=== PATIENT | male | born 1955 | race Caucasian/White ===

== ENCOUNTER 2019-10-21 10:00 | Inpatient (IN) | payer BC, OTHER, MEDICAID ==
[~2019-10-21] VITALS: Ht 175.3 cm; Wt 67.7 kg
[~2019-10-21 10:00] MED LIST: CATAPRES-TTS 20.2 MG TRANSDERM; DOXYCYCLINE 10100 M2 PO; HYPERTENSION MED; TRAZODONE HCL100 MG PO; ZYPREXA 5 MG TAB5 M1 PO
[2019-10-21 10:27] VITALS: BP 123/60
--- NOTE | 2019-10-21 10:53 | NUR ---
ARRIVED TO FLOOR VIA CART ACCOMPNIED BY AMBULANCE MARJ FROM [facility] A 64 YEAR OLD MALE. ADMITTED TO [facility] WITH ETOH WITHDRAWL/DELIRIUM-HAD BEEN LIVING AT [facility] AND DRINKING HEAVILY PER H/P FROM HOSPITAL. UPON ARRIVAL TO UNIT IS PLEASANT AND SMILING,ORIENTED TO NAME ONLY. GAIT STEADY WITHOUT ASSISTIVE DEVICES. SPEECH CLEAR-CONVERSATION DISORGANIZED AND NON-GOAL DIRECTED. DOES REPORT LEFT SHOULDER PAIN- UNABLE TO RATE NUMERICALLY JUST STATES "REALLY BAD" DENIES SI/SH/HI. IS NOTED TO HAVE VISUAL HALLUCINATION DURING ADMITTED INTERVIEW SAW CAT UNDER ROOMMATES BED AND WAS MAKING COOING SOUNDS TO IT. SON GAVIN TONG CONACTED AND CONSENTS OBTAINED.
[2019-10-21 20:06] VITALS: BP 143/87
[2019-10-22 08:10] VITALS: BP 154/71
--- NOTE | 2019-10-22 08:53 | NUR ---
PT UP WANDERING AROUND THE UNIT. PT DOESN'T KNOW WHERE HE IS. PT ORIENTED TO SELF ONLY. PT LUNGS CLEAR. PT DENIES PAIN. PT TOOK MEDS WITHOUT ANY ISSUES. PT NEEDS ENCOURAGED TO SIT TO EAT. PT DOSN'T KNOW WHAT ROOM HE IS IN. PT NEEDS ASSISTANCE WHEN GOING TO BATHROOM.
[2019-10-22 09:05] VITALS: BP 154/71
--- NOTE | 2019-10-22 14:34 | NUR ---
SW contacted pt's son Abdi. No answer. vm is full. SW team will continue to follow pt during his stay on this unit.
--- NOTE | 2019-10-22 18:27 | NUR ---
PT AFTER DINNER WALKING AROUND AND TRYING TO GIVE OTHER RESIDENTS HIS CARROT. HE ALSO WAS GOING AROUND AND GETTING CLOSE TO OTHER RESIDENTS INVAIDING HIS SPACE. PT ALSO HELPING OTHER RESIDENTS TRYING TO GET UP OUT OF W/C. PT ASKED IF HE IS GOING TO LONGTERM. ENSURED PT HE IS NOT GOING TO LONGTERM.
[2019-10-22 19:56] VITALS: BP 177/88
[2019-10-22 21:55] VITALS: BP 177/88
--- NOTE | 2019-10-23 02:53 | NUR ---
Assumed care of patient this pm shift. Patient sitting in the mileu during assessment. Patient is confused but cooperative. Patient takes medications whole with thin fluids. Patient is medication adherent. Patient is alert and oriented to self only at this time. Patient wears a brief and needs assist x1 for bathroom use. Patients affect is blunted. Patients assessment shows no signs of acute distress. Lung sounds are clear, bowel sounds present. Patient is not considered a falls risk. Gait is steady and even. Patient did voice that he was having neck/shoulder pain. Tylenol was given. We will continue to monitor per hospital policy.
[2019-10-23 07:28] VITALS: BP 147/70
--- NOTE | 2019-10-23 08:51 | NUR ---
ASSUMED CARE AT 0700 THIS MORNING. PT. UP WANDERING AROUND, HE WAS TRYING TO GET INTO THE MEDICATION CART, TAKE PEERS FOOD OFF THEIR TRAYS. STAFF WATCHING PT. CAREFULLY AND STOPPED HIM FROM DOING SO. HE WAS GIVEN A CUP OF COFFEE AND ASKED TO SIT DOWN WITH IT. HE KEPT WANDERING AROUND WITH IT INSPITE OF STAFF REQUESTS. HE DID SIT DOWN AND EAT ABOUT 1/2 HIS BREAKFAST. HE TOOK HIS MEDICATIONS WITH MUCH ENCOURAGEMENT OF THIS RN. PT. CONTINUES TO WANDER THE HALLS. HE ASKED THIS DONOR RELATIONS MANAGER FOR A KISS AND ASKED IF I LOVED HIM MORE THAN THE OTHER PTS. HERE. THIS RN TOLD HIM HE WAS INAPPROPRIATE AND THIS IS NOT ACCEPTABLE BEHAVIORS. HE THEN GIGGLED AND WALKED AWAY.
[2019-10-23 12:29] VITALS: BP 147/70
[2019-10-23 12:31] VITALS: BP 147/70
--- NOTE | 2019-10-23 12:41 | NUR ---
BABITA contacted pt's 1st designated DPOA Jorge Shen at [phone]. No answer. BABITA left ms. BABITA also spoke to Abdi who said that Jorge works around heavy machinery so he cannot hear the phone, but he will call BABITA back. BABITA provided this update to Dr. Casiano. BABITA team will continue to follow pt during her stay on this unit.
[2019-10-23 21:34] VITALS: BP 147/70
--- NOTE | 2019-10-23 22:19 | H ---
[facility] [place] [address] HISTORY AND PHYSICAL Name: JORGE MATSON Room #: 526A-A ADM IN M.R.#: [id number] Admission: 10/21/19 Attend Phys: Lonnie Casiano DO Discharge: Date of : 57 Report #: [id number] THIS REPORT FOR: cc: LEAH - No family physician/PCP FAM - No family physician/PCP Lonnie Casiano DO ~ CC: Lonnie LYNN physician/PCP DATE OF SERVICE: 10/21/2019 INPATIENT PSYCHIATRIC EVALUATION ATTENDING PHYSICIAN: Lonnie Casiano DO. LENS EXAMINER: Jorge Hanson MD REASON FOR ADMISSION: Impulsivity, agitation in a setting of alcohol-induced dementia. SOURCES OF INFORMATION: Records from [facility], information from hospice, there Dr. Davidson, records in the computer. HISTORY OF PRESENT ILLNESS: This is a 64-year-old male admitted on 09/29/2019 to [facility]. He had delirium, encephalopathy, likely due to agitation. Apparently we were unable to get in touch with his son. The patient came in quite agitated and confused, requiring admission to the ICU. He had a white count of 19,000 on admission, with a single dose of Rocephin improved to 14,000. He also has a right axillary abscess which is small and did grew MRSA. Review of systems, unable to obtain. He is an every day smoker, apparently uses alcohol daily. He was admitted for acute metabolic encephalopathy, organ dysfunction, alcohol withdrawal at [facility]. Dr. Preston gave the patient Unasyn for his abscess. Also he was put on Precedex, alcohol withdrawal protocol. ADDITIONAL MEDICAL HISTORY AND DIAGNOSIS: Mild protein-calorie malnutrition, right axillary abscess, status post incision and drainage with MRSA, alcohol-induced dementia, left shoulder pain, progressive immobility. Apparently, the patient got significant amounts of Ativan. He was transferred then to the Telemetry Unit. Dr. Norman was consulted. The patient did receive an MRI on 10/16/2019, which found no evidence of acute infarction, mild periventricular white matter disease and chronic microangiopathy. There is cerebral atrophy. Head CT done on 09/27/2019 showed no evidence of acute intracranial hemorrhage or other abnormality. Cervical spine CT from 10/17/2019, apparently Dr. Norman ordered this. Extensive cervical spine degenerative changes, facet fusion was present on the right at C5-C6, C6-C7 [facility] [address] [place] [address] HISTORY AND PHYSICAL Name: JORGE MATSON Room #: 526A-A [facility] IN [facility]#: [id number] Admission: 10/21/19 Attend Phys: Lonnie Casiano, DO Discharge: Date of : 57 Report #: [id number] levels. No acute fracture. Shoulder x-ray as well from 10/09/2019 showed no acute osseous abnormalities, sequelae of remote trauma with manifestations of chronic calcific tendinitis, chronic rotator cuff tear. ALLERGIES: No known allergies. PAST MEDICAL HISTORY: Urinary tract obstruction, hypertension. REVIEW OF SYSTEMS: Not able to be obtained. On questioning this patient, he reported it is 2021. He said the date was . He did not know the day of the week. He is only oriented to self. He is grossly confused. ADDITIONAL INFORMATION: I am going to review the most recent laboratories. Hematology from 10/17/2019, white count 12.2, H and H 13.4 and 41.3, platelet count 416. Chemistries again from 10/17/2019, sodium 141, potassium 4.6, chloride 103, bicarbonate 31, anion gap 7, BUN 13, creatinine 0.7, estimated GFR 114, glucose 126. Lactic acid 0.9, calcium 9.0, that was on 10/17/2019. Total bilirubin 0.3, AST 26, ALT 17, alkaline phosphatase 13. C-reactive protein less than 2.0, total protein 6.6, albumin 3.3, prealbumin 21.0, vitamin B12 of 48. Vitamin D 35.1. TSH 1.164. Toxicology done at time of admission showed positive for marijuana. Salicylate is negative. Acetaminophen negative. Alcohol less than 10. COVID-19 PCR that was just done on 10/19/2019 was negative. PHYSICAL EXAMINATION: VITAL SIGNS: Today, temperature 37.2, pulse 82, respirations 17, BP 143/87. MUSCULOSKELETAL: Disheveled, needs to shave, wearing hospital gown, but ambulatory, so it was a relatively normal gait and station. MENTAL STATUS EXAMINATION: This is a well-developed, ill-appearing male, appearing much older than stated age. Attention limited. Concentration impaired. Speech is normal rate. Thought process nonlinear at times. Thought content disorganized, intermittently making nonsensical comments to this author. Denied SI or HI. Denied auditory, visual, or tactile hallucinations, shaking my hand at points. Mood and affect still okay, congruent and euthymic. Denied SI or HI. Memory not formally tested, but obviously impaired, insight impaired, judgment impaired. Fund of knowledge well below average. FORMULATION: A 64-year-old male admitted on 09/28/[address] Navarro. Apparently, there is some mystery as to how he arrived or who brought him to the hospital. Evidence of Alcohol withdrawl complicated and Dementia throughout medical stay. His PCP is Dr. Franks in [place]. 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 [facility] [address] [place] [address] HISTORY AND PHYSICAL Name: MARILYNERYNJORGE Dax Room #: 526A-A ADM IN ..#: [id number] Admission: 10/21/19 Attend Phys: Lonnie Casiano DO Discharge: Date of : 57 Report #: [id number] As his medical problems include hypertension, he was sent over just on Catapres 0.4 mg daily, trazodone I believe 100 mg at bedtime and famotidine. Current medications in the hospice, cyanocobalamin 500 mcg p.o. daily. MEDICATIONS: Olanzapine 2.5 mg p.o. b.i.d., Seroquel 50 mg q. 6 p.r.n., famotidine 20 mg daily, clonidine 0.2 mg patch, trazodone 100 as stated, house PRNs including ibuprofen. PLAN: Evaluate, stabilize, obtain collateral. ESTIMATED LENGTH OF STAY: 10-14 days. It is unclear if the patient has a surrogate decision maker, so if he does not improve, he will likely require guardianship. Time spent on interview, review of records, coordination of care is at least 45 minutes. STRENGTHS: Simply he is insured. WEAKNESSES: Numerous including early dementia, chronic alcoholism. Evidently, there was a telepsychiatry consultation, had some additional information. - collateral from [facility] staff. Apparently he was living at [facility], called 911 due to exhibiting disorientation. I believe he was in the ED due to falling. Affidavits were done. He denied that he had made suicidal threats but that was allegated. The telepsychiatry spoke to Nusrat Matson, at [phone]. She expressed significant concern for the patient's safety, verified statements and affidavit that was completed by her fiance. She stated she had removed the patient from her home due to his consistent alcohol intoxication as well as consistent suicidal threats. She stated that he has been residing at [facility] for the past 5-6 weeks. She stated that shortly after arriving at the hotel, patient threatened to kill himself with a knife in front of her children. He does have possession of a knife. She stated that the patient does not shower regularly or take care of himself in regard to physical health issues. She stated that she called 911 on Monday after stopping by the hotel to find patient intoxicated and stated to her to let him . The patient does not have any outpatient behavioral health providers and stated that she believes the patient has been diagnosed with bipolar disorder previously. She also stated that he has been previously prescribed Seroquel, but I also spoke to Kary Kurtz at [phone] with [facility]. She stated she became involved with the patient after receiving a hotline call that the patient has essentially been abandoned at the [address] [address] HISTORY AND PHYSICAL Name: JORGE MATSON Room #: 526A-A ADM IN M.R.#: [id number] Admission: 10/21/19 Attend Phys: Lonnie Casiano, DO Discharge: Date of : 57 Report #: [id number] rebecael. She stated that after talking to Nusrat, she clearly said that this was not the case, discussed clinical with ED provider, Dr. Navarro, recommended inpatient psychiatric admission. Dr. Navarro in agreement, admission is involuntary. It sounds like this was done actually on 09/27/2019 and then encephalopathy ensued and he got admitted medically, but I will follow the chain of events. Sounds like the alcohol binging also been 5-6 months from reading through the notes. So I ____ that for the admission H and P and will do a cognitive screen at least ____ and should be able to get some impulse control going. <ELECTRONICALLY SIGNED> By: Lonnie Casiano DO 10/23/19 2219 Lonnie Casiano DO /nt
--- NOTE | 2019-10-24 01:28 | NUR ---
Assumed care of patient this pm shift. Patients mood is variable between irritable and calm. Patient is alert to self only. Patient denies pain. Patient denies hi/si. Patient is very forgetful and wanders the halls going into other patients rooms. Patient needs much redirection. Patient is medication adherent and takes medications whole with thin fluids. Patient is ambulatory and not a falls risk. Patients assessment shows no signs of acute distress. Patients affect is blunted. Patient did not voice any new concerns this evening. Patient is continent of bowel and bladder but does get confused when using the restroom. Patient is able to follow simple directions. We will continue to monitor per hospital protocol.
[2019-10-24 09:17] VITALS: BP 136/66
--- NOTE | 2019-10-24 09:35 | NUR ---
BABITA and Dr. Casiano contacted pt's DPOA Jorge to discuss placement and options for pt's discharge. No answer. Dr. Casiano left a msg. SW team will continue to follow pt during his stay on this unit.
--- NOTE | 2019-10-24 10:07 | NUR ---
ASSUMED CARE AT 0700 THIS MORNING. PT. IS LESS ANXIOUS THIS MORNING. HE IS SOMEWHAT REDIRECTABLE. HE IS A BIT RESISTIVE BUT WILL DIRECT. HE SAT DOWN TO EAT HIS BREAKFAST AND WAS COOPERATIVE WITH TAKING HIS MORNING MEDICATIONS. HE IS COMMUNICATING WITH STAFF IN SHORT SENTENCES, HE CONTINUES TO NOT MAKE SENSE THOUGH.
--- NOTE | 2019-10-24 15:23 | NUR ---
1230 ASSUMED CARE OF PATIENT. PATIENT NOTED WANDERING IN CHAVEZ BEING INTRUSIVE AND WANDERING INTO OTHERS ROOM. PATIENT DID NOT ATTEND GROUP. PATIENT TO DAYROOM SITTING ON COUCH SITTING QUIETLY. WILL CONTINUE TO OBSERVE
--- NOTE | 2019-10-24 18:23 | NUR ---
PATIENT WAS HOLDING HANDS WITH ANOTHER MAN PATIENT AND THEY WERE PRAYING AND CRYING. SYSTEMS INTEGRATOR THEM AND RN WENT TO TALK TO PATIENT. HE WAS WEEPING EYED AND "SAID HE HAS A LOT TO FIGURE OUT AND TO GET HIS LIFE IN ORDER." HE DID NOT SAY ANYTHING ELSE. WAS SITTING ON COUCH LOOKING DOWN.
--- NOTE | 2019-10-25 02:33 | NUR ---
Pt oriented to self. Confused, forgetful. Pt was at the dayroom at time of assessment. Calm and cooperative. Makes lots of nonsensical sentences. Pt took meds as ordered. Pt currently on a recliner in the day room. Pt have not had much sleep so far. Will continue to monitor.
[2019-10-25 07:46] VITALS: BP 142/84
--- NOTE | 2019-10-25 11:26 | NUR ---
[facility] care 0700. 1126 given Quietiapine 50 mg. PO for agitation-getting too close to other patients, sometimes touching them, not responding to redirection or reminders not to get too close and not to touch others. Letting loose verballywith numerous explitives, cuss words for no apparent reason.
--- NOTE | 2019-10-25 13:20 | NUR ---
Caught kissing a male patient in the dayroom. Has briefly spoken to several peers. In and out of various other patients rooms. Not cooperating with numerous requests to stay out of others rooms, not to cuss or touch others. Was given Ziprasidone 15 mg IM for agitation.
--- NOTE | 2019-10-25 15:31 | NUR ---
Continued to need redirection-yelling, cussing for no apparent reason-sitting in the lara not making sense, very angry. At 1528 given Haldol 5 mg and Ativan 1.5 mg IM.
--- NOTE | 2019-10-25 15:56 | NUR ---
Jorge has been agitated, cursing, yelling, and attempting to strike at staff this afternoon. He was moved to a gerichair in the idanha hallway away from the milieu as his yelling was upsetting the milieu. Jorge continues to yell out obscenities, threaten staff, and has put his hands down his pants as female staff walk by, winking at them in the process. At one point he yelled, "I will kill you all. I will kill you good and then play with your bones!" A female patient was walking in the hallway when he shouted this and expressed fear for her safety. Patients in room 518, 520, 522, 523, and 524 have all come to this keno writer/runner in the last hour either tearful or expressing fear/anxiety d/t this patient's behaviors. He conts. to sit in the hallway yelling at this time and is presently undressing himself.
--- NOTE | 2019-10-25 17:00 | NUR ---
At 1635 continued loud, cussing, angry, agitated, not making any sense-was given Haldol 5 mg, Lorazepam 1 mg and benedryl 12.5 mg IM for continued agitation. Started slowing down around 1700.
--- NOTE | 2019-10-25 18:43 | NUR ---
At one point earlier he took off his pants and brief-nude from the waist down. He was toileted a couple of times after that. He went to sleep in the recliner with lap veronique on as he is quite impulsive when he gets up. No BM reported this shift. He did not et dinner as he was dozing during dinnertime.
[2019-10-25 20:00] VITALS: BP 146/75
--- NOTE | 2019-10-26 06:12 | NUR ---
Pt was on a fahad-chair, lap veronique in place at time of assessment. Pt barely responded to assessment questions. Words were more of mumblings. No clarity. Pt was agitated at time of assessment, but not towards nursing. Pt was hitting and punching the fahad-chair. There was some tactile and visual hallucinations noted. Pt was grabbing the air and putting it in his mouth, as if he was grabbing something edible. Tremors also noted this shift on pt. Meds was crushed and put in yoghurt. Pt took meds in yoghurt and had the whole cup of yoghurt. PRN trazodone was given this shift. Pt slept well. No yelling, shouting or screaming. Pt currently in the dayroom, sleeping. Will continue to monitor.
--- NOTE | 2019-10-26 09:13 | NUR ---
PT SITTING IN DINING ROOM IN FOREST CHAIR. PT ORIENTED TO SELF. PT TOOK MEDS WITHOUT ANY ISSUES. PT DRINING APPLE JUICE AND GRAHMN CRACKERS. PT HAS TREMORS TO ARMS AND LEGS. PT SEEMS WEAK BUT STRONG TO STENCIL MAKER. PT LUNGS CLEAR.
--- NOTE | 2019-10-26 10:20 | NUR ---
PT UP WALKING WITH ASSISTANCE WITH STAFF. PT SEEMS SHAKEY. PT TAKEN TO BATHROOM. PT STEADY WITH ASSIST.
--- NOTE | 2019-10-26 11:24 | NUR ---
PT PLACED BACK INTO FOREST CHAIR WITH LAP KD FOR SAFETY. PT RESTLESS AND TRYING TO GET UP AND CONFUSED ON WHAT OR WHERE HE IS DOING. PT SWATTING AT STAFF WHEN TRYING TO GET IN TO FOREST CHAIR.
--- NOTE | 2019-10-26 11:28 | NUR ---
ADM SEROQUEL 50MG PO CRUSHED IN PUDDING DUE TO AGGITATION. PT ATE PUDDING AND DRINKING WATER.
--- NOTE | 2019-10-26 12:58 | NUR ---
PT HAS BEEN WALKING AROUND WITH SHEET AROUND HIS SHOULDERS. HALLUCINATIONS OF NUTS AND BOLTS IN HAND WANTING THIS SHUTTLE OPERATOR TO HOLD THEM. PT GOING INTO ANOTHER ROOM, NEEDING ENCOURAGED TO EXIT ROOM. PT HARD TO REDIRECT.
--- NOTE | 2019-10-26 14:18 | NUR ---
PT DID SIT IN CHAIR FOR A LITTLE WHILE. PT BACK UP NOW PACING THE UNIT.
--- NOTE | 2019-10-26 14:56 | NUR ---
PT SITTING IN DINING ROOM CHAIR EATING CRACKERS AND DRINKING COFFEE.
--- NOTE | 2019-10-26 15:33 | NUR ---
PT GETTING MORE AGITATED, HITTING AT FURNITURE THINKING IT IS SOMETHING ELSE. ADM SEROQUEL 50MG PO.
--- NOTE | 2019-10-26 16:27 | NUR ---
PT WALKED BY NURSE AND SAID SHUT UP OR I WILL BOUND YOU ONE. PT TRYING TO MOVE FURNITURE IN DINING ROOM, PT MOVING CHAIRS AND TABLES.
--- NOTE | 2019-10-26 16:43 | NUR ---
THIS ADMINISTRATIVE MEDICAL DIRECTOR TALKING TO PT AND HE IS YELLING AT THIS ADMINISTRATIVE MEDICAL DIRECTOR. PT GOING INTO OTHER ROOMS AND NOT ABLE TO REDIRECT. GIVING GEODON 15MG IM AT THIS TIME.
--- NOTE | 2019-10-26 17:20 | NUR ---
PT FINISHED DINNER. PT PLACED IN FOREST CHAIR WITH ROSIO YI. PT CURSING AT STAFF AND WAS YELLING AT OTHER RESIDENTS.
--- NOTE | 2019-10-26 18:26 | NUR ---
PT TOOK OFF ARM BAND, STILL TRYING TO GET OUT OF CHAIR. PT SEEMS MORE TIRED.
[2019-10-26 20:34] VITALS: BP 159/88
--- NOTE | 2019-10-26 23:28 | NUR ---
Pt was on a fahad-chair, lap veronique in place in the hallway, at time of assessmement. Pt was cooperative with assessment. Alert and oriented to self only. Confused. Forgetful. Tremors noted. Meds given crushed, mixed with pudding. Pt currently in the dayroom, sleeping. Will continue to monitor.
[2019-10-27 07:37] VITALS: BP 95/51
--- NOTE | 2019-10-27 10:45 | NUR ---
Assumed care 0700. Up is recliner at meal table. Was incontinent taken to room for changing, became irritble, angry, slapping DIANA Del Rosario. Given Ziprasidone 15 mg IM PRN 0858. Initially held PO antipsychotic awaiting results of IM. Tried giving PO Antipsychotic and Acetaminophenlater around 1042--Did not get Acetaminophen, only got partial antipsychotic as he spit it out-it was chrushed and and spit out Multivitamin. Results from IM PRN-started slowing [id number] still confused, angry/irritable.
--- NOTE | 2019-10-27 16:15 | NUR ---
Patient agitated slowly working up for 30 minutes. Prior to that he had gotten to walk around in the dayroom with gait belt and walker with this RN. He talks about wanting to go out of the building to do things. When staff was helpuing him he started hitting them. IM Geodon 15 mg given.
--- NOTE | 2019-10-27 18:20 | NUR ---
Afternoon IM PRN took effect within about 30 minutes of injection. Pt. complained of sore shoulders. At 1840 he started hallucinating, yelling at unknown people stating get off the tractor then cursing flagrantly, taking shirt off.
[2019-10-27 20:00] VITALS: BP 120/82
--- NOTE | 2019-10-28 01:55 | NUR ---
Assumed care on 10/27/19 @ 19:15, Seated in a fahad chair in the day room, has shirt off, Denies needs, Cooperates with assessment, When responding in the negative uses cursing saying "No, Dammit." Denies SI/HI/AH/VH. Tylenol 650 prn provided for general pain of 5/10, upon follow up noted to be in bed with eyes closed, respirations even and unlabored, bed in low position with bed alarm set. Has a Denney score of 40, so is considered a low fall risk. Will continue to monitor as per protocol for patient safety and comfort.
[2019-10-28 02:00] VITALS: BP 120/82
[2019-10-28 09:00] VITALS: BP 98/62
--- NOTE | 2019-10-28 09:00 | NUR ---
PT SLEEPING AT THIS TIME.
--- NOTE | 2019-10-28 11:57 | NUR ---
BABITA contacted [employer] via phone to inquire if pt has a pending Medicaid sebastien. Staff said she will look into pt's acct and contact SW back. SW team will continue to follow pt during his stay on this unit.
--- NOTE | 2019-10-28 12:00 | NUR ---
PT SITTING IN DINING ROOM. PT NEEDED ENCOURAGED TO SIT TO EAT. PT VERY INTRUSIVE WITH OTHER PEOPLES TRAYS AND ITEMS. PT HAS KISSED THIS SYSTEMS ENGINEERING MANAGER HEAD X2. PT WANTING THIS SYSTEMS ENGINEERING MANAGER TO TAKE HIM SOMEWHERE. PT TOOK MEDS CRUSHED IN PUDDING. PT DOES HAVE A GOOD APPETITE.
--- NOTE | 2019-10-28 13:48 | NUR ---
Followup; pt remains on [facility]. Intake trends 70-100% of meals, no new wt since admit. Started on thiamin and vitamin as recommended. This RD mistakenly did not order Ensure as previously intended, so will add today. Otherwise remains low nutrition risk
[2019-10-28 14:11] VITALS: BP 103/59
--- NOTE | 2019-10-28 14:12 | NUR ---
TOOK PT BP WHILE PT WAS SITTING EATING ICE CREAM. PT BP 103/59, TOOK OFF CLONIDINE PATCH.
--- NOTE | 2019-10-28 15:34 | NUR ---
RT Progress Note- Jorge is present in the milieu daily but has not been able to participate in structured groups. Jorge wanders about the unit and is required redirection to respect other patients personal space and property. Jorge is not alert to his situation and displays extremely limited understanding when given a task to complete.
[2019-10-28 19:53] VITALS: BP 153/87
--- NOTE | 2019-10-29 04:04 | NUR ---
Assumed care on 10/28/19 @ 20:30, up in the mileu, Awake, anxious and Ox1. Ambulating throughout the halls and into peers bedrooms. Redirected multiple times. VSS, cooperated with Medication Administration, taking P.O. meds crushed in pudding with water. PRN Tylenol 650 provided for 5/10 General pain. Upon follow up assessment, reports pain only reduced to 4/10. Trazadone 100 provided with HS medication. Repeatedly gets out of bed, ambulating into peers rooms, becomming anxious and agitated. PRN Quetiapine 50 P.O given @ 0030 along with Ibuprophen 600. Seated in the fahad chair in the day room. Patient did not settle down, and instead escalated in psychological behaviors, agressive with staff, loud yelling at staff and peers. PRN Olanzapine IM provided @ 0200. Patient continues to escalate in behaviors, yelling at staff and getting out of fahad chair and ambulating. Transferred to a w/c and seated at a table with the staff. Patient unable to redirect, One time order of 15mg Geodon IM provided @ 0330. Patient allowed himself to be ambulated x2 assist to his bed and laid down in bed. At this writing, is in bed with eyes closed, respirations even and unlabored, bed in low position, bed alarm set.
[2019-10-29 09:09] VITALS: BP 141/74
--- NOTE | 2019-10-29 12:27 | NUR ---
PATIENT VERY CONFUSED - UP WANDERING AROUND WHEN PATIENT CARE ASSUMED AT 0700. PATIENT NEEDS ALOT OF REDIRECTION. INTRUSIVE WITHOUT REALIZING IT. PEERS EASILY AGITATED. RAMBLES ON - THOUGHT PROCESS JUMBLED AND COMPREHENSION NOT THERE. MEDICATIONS GIVEN IN PUDDING CRUSHED AND TOLERATED WELL. MAINTAINS CALM DEMEANOR FOR PATIENT. VERY RESTLESS - DOES NOT SIT STILL AT ALL. NO AGITATION NOTED AT THIS TIME.
--- NOTE | 2019-10-29 15:04 | NUR ---
BABITA contacted [employer] to get an update on Medicaid application. No answer. BABITA left ms. SW team will continue to follow pt during his stay on this unit.
[2019-10-29 19:30] VITALS: BP 164/79
--- NOTE | 2019-10-29 23:34 | NUR ---
Pt alert and walking around. He took his scheduled HS meds crushed in pudding with no issues.Pt looks tired but is restless. Observed walking into other peers rooms and agitating them. When redirected, pt also becoming increasingly anxious and agitated. I went ahead and gave him PRN PO seroquel. Also for sleep, gave him PRN trazodone. He is sitting by a table in the day area@this time,head bent over table.Will continue to monitor for safety.
[2019-10-30 09:13] VITALS: BP 119/59
--- NOTE | 2019-10-30 10:00 | NUR ---
Assumed care 0700. Found sitting in recliner sleeping, leaning forward after breakfast. Was awakened after breakfast and was compliant with meds crushed in pudding. Drank a milkshake which he liked very much. Conversation is not very distinct nor does it make sense. He wanders into other patients' rooms, removing patient gowns, stuffing them in his blue PJ pants. Takes towels and removed sheet protector pad to bring to the dayroom. Has no mentioned Goals or Concerns.
--- NOTE | 2019-10-30 10:55 | NUR ---
BABITA did not see pt on the log from [facility] for Medicaid application. BABITA emailed [facility] staff asking for an update. SW team will continue to follow pt during his stay on this unit.
--- NOTE | 2019-10-30 13:28 | NUR ---
Continues walking in the halls. Angry, lost, needs frequent redirection to get to his room. When redirected to his bathroom, he does not use it. He keeps on pacing the halls. He talked about punks being in the halls with guns. Patient was reassured he was safe in the hospital and there were no guns here. When redirected away from another patient's room became increasingly angry, though did not physically lash out.
--- NOTE | 2019-10-30 14:08 | NUR ---
Given Quetiapine 50 mg. PO at 1349 for increasing agitation-continued wandering into various rooms, getting into personal space of various peers, angry about unit door locked and he can't get out, exit seeking, bends over tries to loosen floor tile, overturned a chair forcefully as if to break it. Staff talking slow, in gentle low voice tone, offering pt. opportunity to take a nap-declined, starting to raise his voice, using several cuss words, thinks the staff-RN is someone whom he knows on the outside-which he does not know. ORder for Metronidazole Gel BID to face BID-obtained at 1355.
[2019-10-30 21:03] VITALS: BP 108/62
--- NOTE | 2019-10-31 00:51 | NUR ---
Pt was in the dayroom at time of assessment. Pt alert and oriented to self. Confused. Forgetful. Pt was cooperative with crushed med in pudding. pt was wandering into other peers' rooms. Unable to sit at a place. Pt became agitated on attempts to get him out of others' rooms. Pt was siited on fahad-chair, still agitated. Nursing attempted severally to redirect pt but did not seem to work. Pt received IM 7.5mg zyprexa. Meds did not do anything for pt as pt continued being agitated. Dr Casianoon the phone and informed of pt's behavior. Onetime IM doses of 5mg haldol and 1mg ativan ordered. Meds given as ordered. Pt currently on the fahad-chair sleeping. Will continue to monitor.
[2019-10-31 09:16] VITALS: BP 128/68
--- NOTE | 2019-10-31 11:51 | NUR ---
REMAINS RESTLESS WITH FREQUENT EPISODES OF INCREASED AGITATION,COMBATIVNESS,LOUD PROFANITY-AGITATION OCCURING PREDOMINATLY WITH CARES AND ANY ATTEMPTS AT REDIRECTING UNSAFE IMPULSIVE BEHAVIOR IE WAS ATTEMPTING TO GET OUT OF GERICHAIR BY SWINGING BOTH LEGS OVER THE SIDE OF CHAIR AND TRYING TO CRAWL OVER SIDE OF CHAIR. ORIENTED TO NAME ONLY-SPEECH GARBLED-CONVERSATION DISORGANIZED-FRAGMENTED INCOHERENT AT TIMES. DENIES C/O PAIN. FACE IS REDDENED AND IS UNSHAVEN-DID ATTEMPT TO SHAVE BUT PT BECOMES COBATIVE. MEDS CRUSHED THIS AM AND PLACED WITH ICE CREAM.
--- NOTE | 2019-10-31 14:36 | NUR ---
BABITA contacted [employer] and spoke to Kati who said Jacky was at lunch. She was unable to verify if Jacky spoke to Jorge Barrett and got the rest of info needed to complete pt's Medicaid sebastien. BABITA also did not see pt's name on the tracking list provided in email yesterday. She said she will ask Jacky to contact SW after she returns from lunch. SW team will continue to follow pt during his stay on this unit.
[2019-10-31 17:05] LABS: ALBUMIN 2.9 g/dL (3.4-5.0); CALCIUM 8.7 mg/dL (8.5-10.1); CREATININE 0.6 mg/dL (0.7-1.3); MAGNESIUM 2.1 mg/dL (1.8-2.4); POTASSIUM 3.9 mmol/L (3.5-5.1); TOTAL BILIRUBIN 0.3 mg/dL (0.2-1.0); TOTAL PROTEIN 6.3 g/dL (6.4-8.2)
[2019-10-31 20:10] VITALS: BP 165/75
--- NOTE | 2019-11-01 02:12 | NUR ---
Assumed pt's care this pm shift. Pt was in the dayroom at time of assessment. Pt was confused. Pt was on a fahad-chair with lap veronique in place. Pt was cooperative with assessment. No agitation or aggression noted. Pt was sleeping at that time, able to open eyes and talk, but falls back asleep with ease. Pt took meds crushed in pudding without hesitation. So far pt have been sleeping off and on. Occassion outburst of cursing and agitation that does not last up to 1 min. This have not warranted any PRN medication at this time. Pt currently on the fahad-chair sleeping. Will continue to monitor.
--- NOTE | 2019-11-01 11:45 | NUR ---
OBSERVED TO BECOME AGITATED,INCREASED RESTLESSNESS AT APPROX 1030-TRYING TO GET UP OUT OF GERICHAIR-PUTTING LEGS OVERSIDE OF CHAIR AND ARREMPTING TO CRAWL OVER SIDE-REMOVING HIS SHIRT AND OTHER CLOTHING. YELLING OUT FOR PIETRO AND GAVIN-THIS RN SPENT APPROX 45 MINUTES 1;1 ATTEMPTING TO REASSURE,REDIRECT-FLUIDS,TOILET AND REPOSITIONING OFFERED,COMPLETED WELL PRN TYLENOL 650MG FOR REPORTED BACK AND ELBOW PAIN AT 1045. TOOK AM MEDICATIONS CRUSHED IN ICE CREAM BUT REFUSES NEW OE=RDER FOR HALDOL PO TO BE STARTED AT 1100-SPIT OUT HALDOL IM GIVEN IN RIGHT DELTOID PER ORDER.
--- NOTE | 2019-11-01 14:30 | NUR ---
BABITA contacted [facility] and spoke with Jacky who said she has yet to hear from Jorge Barrett concerning pt's finances so she can finish his applicaton for Medicaid. BABITA contacted Abdi and explained that she and [facility] have yet to hear back from Jorge to finish pt's assessment. He said that Jorge told him he is calling and leaving BABITA or "whoever" msgs. BABITA explained that she has contacted Jorge several times, left several msgs, and so has [facility] and there arent any calls from Jorge returned regarding Medicaid
[2019-11-01 23:43] VITALS: BP 165/75
--- NOTE | 2019-11-02 01:47 | NUR ---
Assumed care on 11/01/19 @ 19:15, in bed eyes closed respirations even and unlabored. awakened to toilet, and was awake from then on, incease in agtiation note. Quetiapine 50 mg provided P.O. @ 2100. Haldol IM provided @ 2230 to calm severe agitation, the patient was picking up furniture and calling out. Calmed and seated in fahad chair post IM, calmed and closed eyes, with respiration even and unlabored.
--- NOTE | 2019-11-02 05:34 | NUR ---
Awakened @ 05:15, and experienced agitation and physical agression with staff. Provided Haldol 5mg IM. Seated in a fahad chair in the day room, observed by staff. Continues to want to get up and has trouble remaining seated.
[2019-11-02 07:48] VITALS: BP 110/63
[2019-11-02 09:11] VITALS: BP 110/63
--- NOTE | 2019-11-02 12:02 | NUR ---
PATIENT HAS BEEN UP IN RECLINER TODAY. HE HAS BEEN CALM AND COOPERATIVE. HE SITS AND FIDGETS WITH HIS CLOTHES AND HIS FEET. HE DENIES PAIN. FACE STILL WITH DERMATITIS RED SPOTS BUT DOES SEEM TO BE LESS RED. PATIENT IS INCONTINENT AND HAS BEEN TOILETED NEEDED. PATIENT TOOK HIS MORNING MEDS CRUSHED IN PUDDING. HE ATE 80% OF HIS FOOD AND DRANK 100% OF HIS STRAWBERRY ENSURE. I STARTED OUT HELPING HIM EAT AND THEN HE TOOK OVER AND WAS ABLE TO FEED HIMSELF WITH SOME DIRECTION. NO SIGNS OF PAIN. CONTINUING TO MONITOR.
--- NOTE | 2019-11-02 14:25 | NUR ---
PATIENT BECOMING MORE RESTLESS. HE REFUSED HIS HALDOL 5MG PO. HALDOL 5MG IM GIVEN TO PATIENT IN LEFT ARM. PATIENT A LITTLE IRRITABLE THIS AFTERNOON WHEN TRYING TO INSTRUCT HIM. PATIENT TOILETED AND SITTING IN RECLINER WITH LAP KD ON. HE IS QUIET JUST RESTLESS. CONTINUING TO MONITOR.
--- NOTE | 2019-11-02 15:37 | NUR ---
PATIENT REFUSED HALDOL 5MG PO AND WAS GIVEN IM INSTEAD. PT STILL RESTLESS AND TRYING TO GET OUT OF CHAIR. VENTED UP AGITATION SHOWING. GOT PATIENT UP AND WALKED HIM AROUND THE HALLS. HE TRIED TO OPEN [facility] UNIT ENTRY DOORS. HE WAS CURSING AND WASN'T ABLE TO BE REDIRECTED. WALKED AROUND AND FOLLOWED HIM. HE COMPLAINED OF BACK BEING SORE BUT WOULD NOT TAKE ANY MED PO. WARM MOIST TOWEL APPLIED TO BACK WITH SOME RELIEF. PATIENT HELPED BACK TO RECLINER. CHAIR ALARM ON AND LAPBUDDY ON. CHAIR IS LOCKED. PT SITTING AND FIDGETING IN CHAIR. WILL CONTINUE TO MONITOR.
--- NOTE | 2019-11-02 17:54 | NUR ---
PT ATE 50% OF HIS MEAL TONIGHT. HE IS WITH C/O BACK IS HURTING. PATIENT GIVEN TYLENOL 650MG CRUSHED IN ICECREAM. PATIENT HAD TO BE ENCOURAGED TO EAT AND HAD TO HAVE ASSISTANCE IN EATING. PATIENT DRANK HIS SUPPLEMENT 100%. PATIENT CALMED DOWN AND WAS LESS IRITABLE A COUPLE OF HOURS AFTER TAKING HIS HALDOL. HE IS STILL FIDGETING WITH THINGS HE SEE'S ON THE FLOOR. HE IS A/0X1. WILL CONTINUE TO MONITOR.
--- NOTE | 2019-11-03 00:30 | NUR ---
Assumed care on 11/02/19 2 19:15, in bed lying on side, eyes closed respirations even and unlabored. Awakened, toileted and ambulated to day room where he sat in the fahad chair watching basketball on Tv. Cooperated with assessment, vss, assessment WNL, compliant with medication, taking p.o. meds crushed in yogart. Dermatitis on face continues to be red and dry in appearance, topical medication applied. Provided PRN Tylenol 650 for back pain @ 2100. Continues to be awake and seated in fahad chair, will continue to monitor as per protocol for patient safety and comfort.
[2019-11-03 07:00] VITALS: BP 146/88
--- NOTE | 2019-11-03 14:16 | NUR ---
PHYSICALLY AGGRESSIVE AND COMBATIVE WHEN APPROACHED WITH AM MEDICATIONS AT 0900-REFUSED OFFERS OF PO MEDICATION AND BREAKFAST STATING "NO IM GOING HOME" GEODON 20MG IM GIVEN IM IN RIGHT FELTOID AND TOLERATED WITHOUT RESISTANCE. YELLING LOUDLY-ORIENTED TO NAME ONLY.
[2019-11-03 20:38] VITALS: BP 193/62
[2019-11-03 23:36] VITALS: BP 193/62
--- NOTE | 2019-11-04 01:56 | NUR ---
Assumed care on 11/03/19 @ 19:15, seated in a fahad chair in the dayroom. Restless and difficult to care for. Not able to even give name. Cooperated with assessment, no abnormal conditions auscultated. Took meds crushed in pudding, cooperated with medication administration. @ 2100 provided Haldol 5mg IM for violent behaviors after pt was hitting staff attempting to provide incontinent care. x2 staff and x2 security provided care.
--- NOTE | 2019-11-04 02:20 | NUR ---
Patient behavior escalates into severe agitation, getting out of bed after receiving a Haldol IM, kicking and hitting staff. Provided a Geodon 20mg IM x3 Security and x2 nursing staff. Patient monitored for safety, and he continued to try and get out of bed. Transferred to fahad chair and moved to the day room to monitor for patient safety. @ 0110 patient still awake and restless, requested Tylenol 650 for back and general pain. provided crushed in pudding along with Quetiapine 50 P.O. given for Psychiatric agitation and Zofran 4mg P.O. given for nausea. Patient took meds crushed in pudding, and Relaxed in the fahad chair.
[2019-11-04 08:51] VITALS: BP 152/60
--- NOTE | 2019-11-04 11:22 | NUR ---
Nutrition followup: Pt continues on H unit with major neurocognitive disorder with behaviorial disturbance. Noted required IM haldol last noc due to severe agitation, hitting/kicking staff. Unable to adequately interview pt. Intake records 50-100% meals, a couple recent refusals. Pt receiving ensure BID and is drinking 100% recently. On B12, thiamine supplementation. No longer on which is fine as pt drinking ensure BID. Sill no new weight since admit, alerted nsg. Keep as low nutrition risk with interventions in place.
--- NOTE | 2019-11-04 15:21 | NUR ---
RT Progress Note- Jorge's participation in recreation groups is very limited at this time d/t his cognitive deficits and his inability to focus on simple tasks. He is often present in morning exercise groups and is unable to follow along. He does attempt some socialization with peers though it is of disorganized content.
[2019-11-04 15:42] VITALS: BP 152/60
--- NOTE | 2019-11-04 15:55 | NUR ---
ASDSUMED CARE AT 0700 TODAY. PT. IN RECLINING CHAIR ON THE UNIT. HE REMAINS CONFUSED. HE WAS PLEASANT AND COOPERATIVE WITH THIS RN AND TOOK HIS MEDICATIONS WITHOUT PROBLEMS NOTED. HE IS NOT ABLE TO CARRY ON A CONVERSATION BUT DOES SAY A FEW WORDS WHEN ASKED A QUESTION. HE EATS WHEN HE IS PROMPTED OR ASSISTED BY STAFF. HIS SPEECH IS GARBLED MUCH OF THE TIME AND UNABLE TO BE UNDERSTOOD.
[2019-11-04 19:55] VITALS: BP 145/72
--- NOTE | 2019-11-05 03:21 | NUR ---
11-04-19 CARE TRANSFERRED 0 OBSERVED PT SITTING IN RECLINER IN DAY ROOM WITH EYES OPEN. PT AAOX1, VSS, RR EVEN AND NONLABORED ON RA. PT DENIES PAIN AND SI/HI. PT HAS BEEN CALM AND COOPERATIVE, PT IS WILLING TO ANSWERS QUESTIONS, BUT HAS DIFFICULTIES CARRYING ON A CONVERSATION. DURING MEDICATION ADMIN PT HAD NO DIFFICULTIES. LATER PT BECAME AGITATED THEN CALMED DOWN WHEN REPOSITION AND PT CONSUMED APPROXIMATE 120ML OF WATER, SEEMED TO QUITE DOWN, PT BECAME HIGHLY AGITATED AND IM 5M HALDOL ADMIN. WHILE GETTING PT A CHANGE OF CLOTHING NOTED PT WAS RESISTANCE AND COMBATIVE WITH STAFF. LATER NOTED PT HAD CALMED DOWN AND WAS SMILING. NO S/S OF ACUTE DISTRES, PT WILL CONTINUE TO BE MONITOR PER [facility] PROTOCOL.
[2019-11-05 07:35] VITALS: BP 140/68
--- NOTE | 2019-11-05 10:37 | NUR ---
BABITA sent the Medicaid screening tool to Abdi Shen at [email or web address]. BABITA also sent a Medicare.gov listing of nursing facilities. SW team will continue to follow pt during his stay on this unit.
--- NOTE | 2019-11-05 11:49 | NUR ---
ASSUMED CARE AT 0700 THIS MORNING. PT. UP IN RECLINING CHAIR. HE WAS COOPERATIVE WITH EATING SOME OF HIS BREAKFAST AND TAKING HIS MEDICATIONS. LATER IN THE MORNING HE WAS YELLING AND CURSING. HE WAS GIVEN OLANZAPINE 10 MG GIVEN. THIS SEEMED TO BE INEFFECTIVE FOR HIS AGITATION. HE CONTINUED TO YELL AN HOUR AFTER PRN'S WERE TAKEN.
[2019-11-05 13:30] VITALS: BP 140/68
--- NOTE | 2019-11-05 16:40 | EKG ---
[facility] [place] [address] ELECTROCARDIOGRAM REPORT Name: GAVIN MATSON Room #: [facility]- ADM IN M.R.#: [id number] Admission: 10/21/19 Attend Phys: Lonnie Casiano DO Discharge: Date of : 57 Report #: [id number] THIS REPORT FOR: cc: LEAH - No family physician/PCP LEAH - No family physician/PCP Jimmie Freitas MD [facility] ~ THIS REPORT FOR: //name// [facility] Test Date: 2019-11-05 Test Time: 13:33:23 Pat Name: GAVIN MATSON Department: Room: 52 A Gender: M [employer] Worker: Dru MAI : 1955 Requested By: Lonnie Casiano Order Number: [id number] MD: Jimmie Freitas Measurements Intervals [place] Rate: 63 P: -29 [place]: 167 QRS: -34 QRSD: 96 T: -11 QT: 477 QTc: 489 Interpretive Statements Sinus rhythm Atrial premature complex Left axis deviation Borderline T abnormalities Borderline prolonged QT interval No previous ECG available for comparison Electronically Signed On 11-05-2019 16:40:42 CDT by Jimmie Freitas [email or web address] <ELECTRONICALLY SIGNED> By: Jimmie Freitas MD, [facility] 11/05/19 1640 1333 1333 Jimmie Freitas MD, [facility] /EPI
[2019-11-05 19:25] VITALS: BP 128/71
--- NOTE | 2019-11-06 01:50 | NUR ---
11-05-19 CARE TRANSFERED AT 1900 OBSERVED PT SITTING IN RECLINER WITH EYES OPEN IN DAY ROOM. 1920 PT AAOX1, VSS, RR EVEN AND NONLABORED ON RA, PT DENIES ANY PAIN AND SI/HI. PT PRESENTS AGITATED AND COMBATIVE AND REFUSED ANY FURTHER NURSING ASSESSMENT. OBSERVED PT HITTING TABLE WITH HANDS IN DAY ROOM. DURING MEDICATION ADMIN PT HAD NO DIFFICULTIES TAKING PILLS CRUSHED IN PUDDING, BUT WHEN APPLYING TOPICAL MEDICATION TO DERMITIES PT STARTED SLAPPING MOTION. WHEN ASKED WHY, PT REPORTED I DON'T WANT, PT WILL ANSWER QUESTION BUT DOES NOT CONTINUES A CONVERSATION, OFTEN TIMES RAMBLING ON WITH FLIGHT OF IDEAS. LATER NOTED PT HAD CALMED DOWN AND NOTED HE WAS RESTING WITH EYES CLOSED IN GERICHAIR. ZERO S/S OF ACUTE DISTRESS NOTED, PT WILL CONTINUE TO BE MONITOR PER [facility] PROTOCOL.
[2019-11-06 07:27] VITALS: BP 120/71
[2019-11-06 09:42] VITALS: BP 120/71
--- NOTE | 2019-11-06 09:47 | NUR ---
Assumed care 0700. Redness spots clearing on face. No complaints of pain or distress. He continues to take off his ID and fall risk bands daily and sometimes more frequently. He tried to grab this nurse's wrist when offered AM medication. He was in group but not participating. Alert and oriented to name only. Confused.
[2019-11-06 19:40] VITALS: BP 122/62
--- NOTE | 2019-11-06 20:14 | NUR ---
Behavior most of shift was O.K. except for after dinner when he started taking his clothes off, then he became a little aggressive. It was clear he did not want his shirt on. He self-feeds.
--- NOTE | 2019-11-07 02:02 | NUR ---
11-06-19 CARE TRANSFERED 1899 OBSERVED PT SITTING IN GERICHAIR IN DAY ROOM WITH EYES OPEN. 1939 PT AAOX1, VSS, RR EVEN AND NONLABORED ON RA. PT PRESENTS CALM AND COOPERATIVE, ANSWERS QUESTIONS, DOES NOT CONVERSATION AND WHEN TRYING TO PT BECOMES FRUSTRATED. PT DENIES ANY PAIN AND SI/HI. DURING MEDICATION ADMIN PT HAD NO DIFFICULTIES. LATER PT REPORTED HE KNEES HURT AND SCORED AT A 6 ON 0-10 SCALE AND FEELING A LITTLE NAUSATED. OBSERVED PT HITTING TABLE AND NOTED AGITATION. PRN MEDICATION WAS ADMIN AND LATER NOTED PT WAS RESTING COMFORTABLE WITH EYES CLOSED. ZERO S/S OF ACUTE DISTRESS NOTED, PT WILL CONTINUE TO BE MONITOR PER [facility] PROTOCOL.
[2019-11-07 07:12] VITALS: BP 131/68
[2019-11-07 09:24] VITALS: BP 131/68
--- NOTE | 2019-11-07 09:32 | NUR ---
ASSUMED CARE AT 0700 TODAY. PT. UP, DRESSED AND IN RECLINING CHAIR. HE REMAINS VERY CONFUSED. ORIENTED TO HIS NAME ONLY. HE TOOK HIS MORNING MEDICATIONS WITHOUT PROBLEMS NOTED. HE FED HIMSELF BREAKFAST. HE WAS RESTLESS AFTER BREAKFAST AND WAS GIVEN TYLENOL FOR C/O PAIN IN HIS KNEES, BILATERALLY.
--- NOTE | 2019-11-07 14:26 | NUR ---
BABITA reviewed pt's chart and saw his last IM was on 11/05/2019. SW will wait until pt has at least 3 days without an IM injection before sending referrals for placement. SW team will continue to follow pt during his stay on this unit.
--- NOTE | 2019-11-08 02:33 | NUR ---
ASSUMED CARE FROM DAY SHIFT PT UP IN CHAIR AGITATED , MUMBLING , UNABLE TO GIVEN EYE CONTACT OR ANSWER SIMPLE QUESTION. PO MEDICATION TAKEN AFTER MUCH COACHING. PT REMAIN UP IN CHAIR MOST OF NIGHT.
--- NOTE | 2019-11-08 11:00 | NUR ---
Assumed care 0700. Face was scrubbed with soap and water with washcloth to remove scaling facial skin. Face remains with reddened spots. At times he pounds the table and the recliner. He does not answer assessment questions.
--- NOTE | 2019-11-08 11:05 | NUR ---
BABITA faxed updates from 23-11-03 to Kezia with [employer]. BABITA provided her an update on pts care verbally via phone also. BABITA team will continue to follow pt during his stay on this unit.
--- NOTE | 2019-11-08 14:28 | NUR ---
BABITA provided Abdi Shen a verbal update on pt's behaviors and happenings. Abdi asked that Dr. Casiano call he and his tomorrow to talk about the medication changes and prognosis. BABITA provied Dr. Casiano an update. SW team will continue to follow pt during his stay on this unit.
--- NOTE | 2019-11-08 17:30 | NUR ---
Pt. was given MOM prn and Senna/Docusate for bowels. No bowel movement yet. Incontinent of urine. Was asked several times if he needed toilet and would say he didn't or not give an answer. At one time he was pounding table and recliner, delusional/hallucinating responding to internal stimuli about cars, trucks, wanting to go somewhere unknown. Given PRN for agitation with god success in about 20 minutes. Plays with his food at dinner. Does initiate conversation with peers.
[2019-11-08 19:51] VITALS: BP 133/77
--- NOTE | 2019-11-08 21:10 | NUR ---
Assumed care on 11/08/19 @ 19:15, agitated and speaking nonsense. Denies Anxiety and Depression. Not able to get an answer to SI/HI and hallucination inquiry. Took meds crushed in yogart and drank water after. Tylenol given for shoulder pain of 5/10. Seated in fahad chair. HRRR, Lungs CTA bilat, would not allow auscultation of ABD. Will continue to monitor for patient safety and comfort.
--- NOTE | 2019-11-09 00:21 | NUR ---
At 00:15, began pounding fist on furniture and calling out. Provided PRN chlorpromazine 25mg IM in Left Delt, tolerated well x2 staff provided care.
--- NOTE | 2019-11-09 05:47 | NUR ---
Continued to rest in the fahad chair and slept 6.2 hours throughout the night.
[2019-11-09 07:22] VITALS: BP 144/80
[2019-11-09 08:32] VITALS: BP 144/80
--- NOTE | 2019-11-09 08:40 | NUR ---
PT SITTING IN DINING ROOM. PT IS INTERACTIVE WITH STAFF. PT CURSES AT TIMES. PT TOOK MEDS CRUSHED IN PUDDING, PT COMPLIENT WITH MEDS. PT HAS REDDNESS TO FACE WHERE BOTELLO IS. PT SITTING IN MEGHNA CHAIR WITH ROSIO YI.
--- NOTE | 2019-11-09 10:00 | NUR ---
ASSISTED PT TO BEDROOM TO CHANGE PANTS. PT LOWER EXT SWELLING, ANKLE AND FEET. PT CURSING AT STAFF AND SAYING OUCH. PT WAS INCON OF URINE. PT HAS REDDNESS TO COCCYX. APPLIED BARRIER CREAM TO REDDNESS. PT CHANGED AND LAID DOWN TO REST.
--- NOTE | 2019-11-09 10:39 | NUR ---
PT STILL RESTING AT THIS TIME.
--- NOTE | 2019-11-09 14:09 | NUR ---
PT SITTING IN DINING ROOM. PT TRYING TO GET UP OUT OF CHAIR. PT WAS CHANGED BEFORE LUNCH. NO THREATENING BEHAVIOR.
--- NOTE | 2019-11-09 17:38 | NUR ---
PT ABLE TO FED SELF. PT HITTING ARM OF THE CHAIR TODAY. PT DID HAVE A NAP AFTER BREAKFAST. PT WAS IN A GOOD MOOD WHEN GETTING BACK UP.
[2019-11-09 19:54] VITALS: BP 144/80
--- NOTE | 2019-11-09 20:40 | NUR ---
Assumed care on 11/09/19 @ 19:15, took his penis out of his pants while I was giving him his meds and urinated in a shower. He did not verbally say that he needed to urinate. He was taking his hospital gown off, but no other indication of need to urinate. Toileted and cleaned up, redressed in clean clothes and returned to the day room. No BM, but noted to have gas. Watching the baseball game, but says it is a football game. HRRR, Lungs CTA, ABD N BS. Will continue to monitor for patient safety and comfort.
--- NOTE | 2019-11-09 22:47 | NUR ---
Undressing self, taking shirt off and verbally calling out, given Thorazine 25 IM in the left deltoid. Tolerated IM well [id number] to administer. Follow up Acetaminophen 650, noted to still be uncomfortable, 3/10 Partial relief noted. 20 minutes after taking the IM, became calm and closed eyes. Respirations even and unlabored. Will continue to monitor for patient safety and comfort.
--- NOTE | 2019-11-10 06:00 | NUR ---
SLEPT 7 HOURS OVERNIGHT
[2019-11-10 07:33] VITALS: BP 152/77
[2019-11-10 08:00] VITALS: BP 152/77
--- NOTE | 2019-11-10 08:30 | NUR ---
PT SITTING IN DINING IN MEGHNA CHAIR. PT ABLE TO FEED SELF BREAKFAST. PT TOOK MED CRUSHED IN YOGART. PT DRINKING THIN WATER. PT MADE FACE WITH MED ADM. PT LUNGS CLEAR. RASH ON FACE IS CLEARING UP.
--- NOTE | 2019-11-10 14:38 | NUR ---
PT WAS HOWLING LIKE A DIAZ TODAY AFTER LUNCH. PT WAS TAKEN TO ROOM VIA WALKER AND X2 ASSIST TO BATHROOM. PT TOLERATED ACTIVITY WELL. NO WEAKNESS OR SOB.
--- NOTE | 2019-11-10 14:39 | NUR ---
Per Dr. Casiano, BABITA arranged an onsite family meeting with pt's son, Abdi [phone]. Tx team and Cloud Engineer were notified. Abdi was informed he would be required to wear a mask while onsite and would be allowed a one-hour visit with his dad following the meeting. Abdi was also informed one visitor will be allowed. Abdi expressed an understanding. SW team will continue to follow.
--- NOTE | 2019-11-10 19:00 | NUR ---
PT SEEMS RESTLESS IN MEGHNA CHAIR. TOLD PT THAT HIS SON IS VISITING TOMMORROW, PT STATED GOOD.
[2019-11-10 19:31] VITALS: BP 147/80
--- NOTE | 2019-11-11 01:24 | NUR ---
11-10-19 CARE TRANSFRED 1899 OBSERVED PT SITTING IN FOREST CHAIR IN DAY ROOM WITH EYES OPEN. 1939 PT AAOX1, VSS, RR EVEN AND NONLABORED ON RA. PT DENIES ANY PAIN OR SI/HI. PT RESTLESS BUT CALM AND COOPERATIVE THROUGHOUT NURSING ASSESSMENT. DURING MEDICATION ADMIN PT HAD NO DIFFICULTIES. DURING ROUND NOTED PT SUPINE IN BED RESTING WITH EYES CLOSED. LATER RESPONDED TO BED ALARM AND PT WAS THRASHING IN BED WANTING TO GET UP. PT ASSISTED INTO FOREST CHAIR AND TAKEN TO DAY ROOM; A LITTLE WHILE LATER OBSERVED PT HOWLING. ZERO S/S ACUTE DISTRESS, PT WILL CONTINUE TO BE MONITOR PER [facility] PROTOCOL.
[2019-11-11 07:17] VITALS: BP 164/88
--- NOTE | 2019-11-11 09:29 | NUR ---
PATIENT CARE ASSUMED AT 0700 - IN FOREST CHAIR IN [facility]. QUIET NON AGITATED - AGREEABLE. ATE BREAKFAST - MEDICATIONS ADMINISTERED IN APPLESAUCE AND TOLERATED WELL. 0BSERVED RESPONDING TO INTERNAL STIMULI AT TIMES. RESTLESS IN CHAIR. ASSISTED WITH VOIDING AFTER BREAKFAST. NEEDS REDIRECTION - WAS NOT FOCUSED ON GROUP - MADE ODD GROWLING SOUND AND NEEDS REDIRECTION OFTEN. COMPLIANT FOR AWHILE AND THEN STARTS RESTLESSNESS ONCE AGAIN. SAT THROUGH ACTIVITY BUT NON ENGAGED - DISRUPTIVE AT TIMES.
--- NOTE | 2019-11-11 15:09 | NUR ---
BABITA participated in a family meeting with pt's son, Abdi (who is trying to have DPOA switched to him.) Abdi was provided an update on the course of treatment, plans for discharge, and recommendations for placement (memory care.) He was notified that patient has been placed on a DNR status. Abdi expressed an understanding. Abdi stated he has notified BABITA Ross of 5 options to request placement. Abdi requested a letter from Dr. Casiano stating pt is not able to make decisions for himself. He will provide the contact information for the trademark attorney he would like the letter faxed to. BABITA team will continue to follow during this inpatient stay.
[2019-11-11 20:02] VITALS: BP 115/76
--- NOTE | 2019-11-12 03:31 | NUR ---
11-11-19 CARE TRANSFERRED 1899 OBSERVED PT SITTING IN GERICHAIR IN DAY ROOM. 193 PT AAOX1, VSS, RR EVEN AND NONLABORED ON RA. PT DENIES ANY PAIN AND SI/HI/ PT IS CALM AND COOPERATIVE, NOTED WHEN PT IS SPEAKING HE OFTEN SWITCHING SUBJECT OR LOSES TRAIN OF THOUGHT. DURING MEDICATION ADMIN PT HAD NO DIFFICULTIES. LATER RESPONSED TO BED ALARM AND PT REPORTED HE WAS NOT SLEEPY. PT WAS BROUGHT OUT TO DAY ROOM. OBSERVED PT BEING RESTLESS AND WAS GETTING LOUDER AND FIGDETING. HCP WAS CONTACTED AND HALDOL 5MG PO AND 1 MG ATIVAN PO ORDER RECEIVED. PT HAD NO DIFFICULTIES TAKING MEDICATION. LATER PT WAS ASSISTED TO BATHROOM AND PT HAD LARGE BM. LATER NOTED PT RESTING IN GERICHAIR WITH EYES CLOSED. ZERO S/S OF ACUTE DISTRESS NOTED, PT WILL CONTINUE TO BE MONTIOR PER [facility] PROTOCOL.
[2019-11-12 07:28] VITALS: BP 135/76
--- NOTE | 2019-11-12 10:53 | NUR ---
RT Progress Note- Jorge continues to be present in the milieu though he is not a productive participant. He no longer spends the entirity of his free time/group time wandering about the unit and is rather present by sitting in a fahad recliner. This allows for his presence in group though he is unable to actively participate as he is not oriented to situation or able to follow tasks given to him. He does continue to yell out, particularly when the milieu is active.
--- NOTE | 2019-11-12 11:26 | NUR ---
BABITA and Dr. Casiano spoke with Abdi about the letter he needs from the doctor. He has a meeting with his environmental attorney on 11/17 and needs a letter stating pt is incapacitated. Dr. Casiano and BABITA reviewed pt's chart and saw he got an prn IM on 11/08. Dr. Casiano agreed to allow one more day before placement. SW team will continue to follow pt during her stay .
--- NOTE | 2019-11-12 11:31 | NUR ---
ASSUMED CARE OF PT AT 0700. PT ALERT TO SELF ONLY SOMEWHAT IMPULSIVE. PT UNABLE TO ANSWER ASSESSMENT QUESTIONS. PT TOLERATES MEDS AND MEALS. PT UP SITTING IN DINNING ROOM. LITTLE INTERACTION WITH STAFF AND PEERS. WILL CONTINUE TO MONITOR.
[2019-11-12 20:00] VITALS: BP 131/80
[2019-11-12 23:22] VITALS: BP 131/80
--- NOTE | 2019-11-13 02:03 | NUR ---
ASSUMED CARE ON 11/12/19 @ 19:15, SEATED IN A FOREST CHAIR IN THE DAY ROOM. SPEAKS WHEN ADDRESSED BY STAFF. ANSWERS QUESTIONS WITH WORD SALAD ANSWERS. ENDORSES SHOULDER PAIN, CANNOT RESPOND TO MENTAL HEALTH ASSESSMENT INTERVIEW, CONFUSED WORD SALAD RESPONSES. HRRR, LUNGS CTA BILAT, ABD BS PRESENT. BECOMES AGITATED AND UNDRESSES REPEATEDLY. SCHEDULED MEDS GIVEN CRUSHED IN YOGART WITH WATER. PRN TYLENOL 650 PROVIDED AND FOLLOW UP ASSESSMENT PARTIAL PAIN RELIEF NOTED. COMPLIANT WITH MEDICATION ADMINISTRATION. RETIRED TO BED @ ABOUT 2300, GIVEN INCONTINENT CARE AND HAS BEEN ASLEEP UNTIL THIS WRITING. BED IN LOW POSITION, BED ALARM SET. WILL CONTINUE TO MONITOR PER UNIT PROTOCOL.
[2019-11-13 07:29] VITALS: BP 140/80
--- NOTE | 2019-11-13 10:50 | NUR ---
Nutrition followup: pt continues on [facility] unit with major neurocognitive disorder with behavioral disturbance. End stage alcoholic dementia. Unable to interview. Noted most recent weight up 11# from admit. Pt has been eating well, 75-100% of meals and drinking 100% of ensure BID. CM working on placement. Continue present interventions and followup weekly.
--- NOTE | 2019-11-13 15:43 | NUR ---
BABITA sent referrals to the followin. [facility] - referral sent 11/12 2. [facility] - [facility]/12 3. [facility] - referral sent 11/12 4. [facility]. [facility] 5. [facility] - referral sent 11/12 6. [place] - referral sent 11/12 7. [facility] - referral sent 11/12 8. [place] - referral sent 11/12 SW team will continue to follow pt during his stay on this unit.
--- NOTE | 2019-11-13 16:01 | NUR ---
PT SITTING IN CHAIR IN THE DAY ROOM THROUGHOUT THE DAY. VISUAL HALLUCINATIONS NOTED AT TIMES. AGGRED TO TAKE MEDS CRUSHED WITH PUDDING THIS AM. PT HAS BEEN CALM THROUGHOUT THE DAY.
[2019-11-13 19:26] VITALS: BP 164/93
--- NOTE | 2019-11-14 04:53 | NUR ---
Assumed pt's care this pm shift. Pt alert and oriented to self. Very confused. Tangential. Flight of ideas. Unable to carry ou meaningful conversation. Pt was calm during assessment. No aggression or agitation noted. Pt took his meds whole without problems. Pt had ice cream for HS snacks. Pt slept very little this shift, off and on. Pt spent the night in the dayroom, on a fahad-chair, with lap veronique in place for safety. Pt was very talkative. Pt currently awake and just talking. Will continue to monitor.
[2019-11-14 06:23] LABS: HEMATOCRIT 39.1 % (42.0-52.0); HEMOGLOBIN 12.7 gm/dL (14.0-18.0); MCH 30.4 pg (26.0-34.0); MCHC 32.5 g/dL (28.0-37.0); MCV 93.4 fL (80.0-100.0); RBC 4.19 mil/uL (4.50-6.00); RDW 14.6 % (10.5-14.5); WBC 12.6 thou/uL (4.0-11.0)
[2019-11-14 06:55] LABS: ALBUMIN 2.8 g/dL (3.4-5.0); CALCIUM 8.6 mg/dL (8.5-10.1); CREATININE 0.6 mg/dL (0.7-1.3); TOTAL BILIRUBIN 0.2 mg/dL (0.2-1.0); TOTAL PROTEIN 6.6 g/dL (6.4-8.2)
[2019-11-14 07:38] VITALS: BP 130/69
--- NOTE | 2019-11-14 16:27 | NUR ---
BABITA received a call from Meeta with [facility] who said she is considering pt's referral; she just needs pt's DPOA to also have financial POA. She may need an onsite visit. She said she will contact pt's DPOA and talk to him about financial DPOA. SW team will continue to follow pt during his stay on this unit.
--- NOTE | 2019-11-14 17:42 | NUR ---
PT ORIENTED TO SELF ONLY. FORGETFUL AND CONFUSED. PT AGREEABLE TO MEDS. PT COOPERATIVE & APPROPRIATE THIS SHIFT. PT WAS BLADDER SCANNED PER ORDERS, <26ML PRESENT IN HIS BLADDER. PT INCONTINENT OF URINE IN BRIEF, CHANGED NEEDED. ATTEMPTED TO COLLECT URINE SAMPLE FROM PT, LIMITED ON OPTIONS FOR COLLECTION. PT DOES NOT VOID IN URINAL ON COMMAND, CONDOM CATH NOT AVAILABLE R/T SAFETY CONCERNS WITH TUBING, BLADDER DID NOT HAVE SUFFICIENT VOLUME PER SCAN FOR STRAIGHT CATH AND PT BECOMES AGITATED WHEN CLEANING OR CHANGING BRIEF. ATTEMPTED TO USE TEMP COLLECTION BAG, PT REMOVED AND THREW ON FLOOR. PT DID AMBULATE WITH STAFF BRIEFLY THIS AFTERNOON WITH STB ASSIST. WALKER PROVIDED FOR STABILITY, PT PUSHED WALKER TO SIDE FREQUENTLY AND RETURNED TO CHAIR. WAS NOT ABLE TO REDIRECT APPROPRIATELY DUE TO PT COGNITIVE CAPACITY. FALL PRECAUTIONS IN PLACE. PT RESTLESS THIS SHIFT, FREQUENT OBSERVATION PROVIDED FOR SAFETY.
[2019-11-14 20:22] VITALS: BP 154/50
--- NOTE | 2019-11-15 05:10 | NUR ---
Assumed care of pt @ 1900. Pt calm et cooperative at beginning of shift but became quite agitated just after med pass requiring Chlorpromazine IM PRN to be administered to right deltoid. Pt tolerated injection with no signs or symptoms of adverse reaction. Took medications whole without difficulty. Ambulates with assistance of w/c or fahad-chair. VSWNL. Health assessment with no abnormalities at present time. Unable to assess SI/HI due to cognitive deficit but does not demonstrate any signs or symptoms of emotional distress. Sits in dayroom with peers but does not socialize. Currently resting in dayrrom in fahad-chair with eyes closed. Will continue to monitor per protocol.
[2019-11-15 08:00] VITALS: BP 109/83
--- NOTE | 2019-11-15 08:12 | NUR ---
PT WAS ABLE TO FEED SELF. PT DID TAKE PILLS ORALY WITHOUT BEING CRUSHED. DID GIVE DEPAKOTE SPRINKLES IN YOGART. PT HAS DRY SKIN TO FACE. PT STATED HE HAS PAIN TO RT SIDE WHEN ASKED IF HE WAS HURTING. PT HAS ACTIVE BOWEL SOUNDS.
[2019-11-15 08:40] VITALS: BP 109/83
--- NOTE | 2019-11-15 11:30 | NUR ---
TOOK PT TO ROOM AND ASSISTED PT TO STAND AND PT WAS ABLE TO WALK AROUND THE ROOM. PT STATED HE NEEDED TO HAVE A BM. PT DID PASS GAS. PT ALLOWED THIS CROSSCUTTER TO PUT ON A URINE COLLECTION BAG ON HIS PENIS. PT DID HAVE SOME REDDNESS TO COCCYX AREA, APPLIED BARRIER CREAM. PT THEN SAT DOWN ON HIS NEIGHBOR BED. PT ENCOURAGED TO WALK WITH NURSE TO DINING ROOM. PT STATED HE DIDN'T WANT TO WALK. PT THEN ATTEMPTED TO BODY AND FENDER WORKER BEDSIDE TABLE AND HITTING IT WITH A CLEAN DIAPER. PT WAS DRY IN BRIEF.
--- NOTE | 2019-11-15 11:54 | NUR ---
PT SITTING IN DINING ROOM IN CHAIR. PT CURSING AT SELF NOT TO ANYONE ELSE.
--- NOTE | 2019-11-15 13:38 | NUR ---
CHECKED TO SEE IF PT HAD VOIDED VIA SPECIMEN BAG, PT TOOK BAG OFF.
--- NOTE | 2019-11-15 13:56 | EKG ---
[facility] Lauryn [place] [address] ELECTROCARDIOGRAM REPORT Name: GAVIN MATSON Room #: [facility]- ADM IN M.R.#: [id number] Admission: 10/21/19 Attend Phys: Lonnie Casiano DO Discharge: Date of : 57 Report #: [id number] THIS REPORT FOR: cc: LEAH - Nellie family physician/PCP LEAH - Nellie family physician/PCP Chau Shine MD [facility] ~ THIS REPORT FOR: //name// [facility] Test Date: 2019-11-15 Test Time: 13:22:00 Pat Name: GAVIN MATSON Department: Room: 52 A Gender: M Dental Hygienist: Dru MAI : 1955 Requested By: Lonnie Casiano Order Number: [id number] MD: Chau Shine Measurements Intervals Rolla Rate: 85 P: 35 MD: 161 QRS: -24 QRSD: 76 T: -60 QT: 456 QTc: 543 Interpretive Statements Sinus rhythm Atrial premature complex Probable left atrial enlargement Borderline left axis deviation Borderline T abnormalities, inferior leads Compared to ECG 11/05/2019 13:33:23 No significant changes Electronically Signed On 11-15-2019 13:56:19 CDT by Chau Shine [email or web address] <ELECTRONICALLY SIGNED> By: Chau Shine MD, FACC 11/15/19 1356 1322 1322 Chau Shine MD, FAC /EPI
--- NOTE | 2019-11-15 15:11 | NUR ---
ATTEMPTED TO GET PT TO USE URINAL. PT WAS INCON. OF URINE. PT SITTING IN HALLWAY. GETTING PT A CUP OF WATER TO DRINK. PT DRANK CUP OF WATER.
--- NOTE | 2019-11-15 16:30 | NUR ---
PT WAS INCON. OF URINE IN CHAIR. PT UNDID LAP KD AND WAS STANDING. PT ESCORTED TO ROOM. PT WANTING TO GO TO ANOTHER ROOM INSTEAD. PT HARD TO REDIRECT. PT PULLING ON NURSE AND PLACED HEAD ON DOOR OF A ROOM. NEEDED ASSISTANCE TO GET PT TO HIS ROOM. PT SAT DOWN AND VOIDED IN TOILET. ATTEMPTED TO GET URINE VIA URINAL. PT NOT WANTING THIS TAIL PULLER TO GET URINE VIA URINAL. PT THEN DIGGING INTO HIS RECTUM TO GET STOOL. PT SITTING ON STOOL AND DIDN'T HAVE A BM. PT NEEDED ASSISTED TO GET BACK TO THE DINING ROOM.
--- NOTE | 2019-11-15 18:30 | NUR ---
OBTAINED STRAIGHT CATH WITH ASSISTANCE. PT DIDN'T TOLERATE VERY WELL.
[2019-11-15 19:09] LABS: URINE BILIRUBIN NEGATIVE (Negative); URINE BLOOD NEGATIVE (Negative); URINE CLARITY CLEAR; URINE COLOR YELLOW; URINE GLUCOSE-RANDOM* NEGATIVE (Negative); URINE KETONES 1+ (Negative); URINE LEUKOCYTES-REFLEX NEGATIVE (Negative); URINE NITRITE-REFLEX NEGATIVE (Negative); URINE PROTEIN (DIPSTICK) NEGATIVE (Negative); URINE SPECIFIC GRAVITY 1.025 (1.005-1.035)
[2019-11-15 19:48] VITALS: BP 102/62
--- NOTE | 2019-11-16 05:22 | NUR ---
Assumed care of pt @ 1900. Pt calm et cooperative at beginning of shift. Became hyperverbal et loudly cursing at other pts just after the beginning of shift. Pt was attempting to grab et pinch this nurse when administering medications, but pt did succesfully take medications whole without difficulty swallowing. Ambulates the halls with assistance of fahad-chair. VSWNL. Health assessment with no abnormalities noted at present time. Unable to assess SI/HI due to cognitive deficit but pt does not demonstrate any signs or symptoms of emotional distress at present time. Currently resting in fahad-chair in dayroom with eyes closed. Pt had minimal amount of sleep this shift. Will continue to monitor per protocol.
[2019-11-16 07:55] VITALS: BP 114/58
--- NOTE | 2019-11-16 10:37 | NUR ---
Assumed care for patient at 0700. Up in gerichair with osvaldo piper. in good mood, laughing with staff. Ate breakfast in dayroom. Up to bathroom. Had a small amount of formed stool. Up in bathroom. Walked from bedroom to dayroom. gait steady. VSS. Remains on Fall Precautions. Monitored for safety q 12 minutes. Aloert and orieinted to person. Changes level of cooperation quickly. Taking medication whole without difficulty. At times yelling out. Soft toy has a calming effect on restlessness.
[2019-11-16 20:17] VITALS: BP 161/91
--- NOTE | 2019-11-17 05:23 | NUR ---
Assumed care of pt @ 1900. Pt calm et cooperative at beginning of shift. Took medications whole without difficulty. Ambulates with assistance of fahad-chair. VSWNL. Health assessment with no abnormalities noted at present time. Around mid-shift, pt started to become agitated, yelling out, banging hand on table et chair, et cursing loudly. Talked with pt et he settled down a bit. Gave Tylenol 650mg PO PRN for shoulder pain around 0400. Pt denies SI/HI at present time. Currently resting in fahad-chair in dayroom with eyes closed. Will continue to monitor per protocol.
[2019-11-17 09:01] VITALS: BP 121/59
[2019-11-17 10:53] VITALS: BP 121/59
[2019-11-17 19:19] VITALS: BP 116/87
[2019-11-17 23:01] VITALS: BP 116/87
--- NOTE | 2019-11-18 01:49 | NUR ---
Assumed care on 11/17/19 @ 19:15, Seated in a fahad chair speaks to staff and hollers out to random peers. Cooperative with assessment, HRRR, Lungs CTA bilat, ABD [id number]. Compliant with medication. Took meds crushed in pudding. Became loud and verbally agressive @ 21:00, yelling out and calling people obscenities. Became physically agressive with incontinent care. Order obtained for Chlorpromazine HCL 25mg IM @ 21:45. Patient continued to call out, to cuss and use obscenities to rant and yell out. He also undresses himself. Calmed down by 23:15 and has slept in the fahad chair up to this writing.
--- NOTE | 2019-11-18 06:36 | NUR ---
Slept 4.8 hours overnight.
[2019-11-18 07:41] VITALS: BP 110/87
[2019-11-18 10:33] VITALS: BP 110/67
--- NOTE | 2019-11-18 10:40 | NUR ---
ASSUMED CARE OF PT. AT 0700 THIS MORNING. PT. UP IN RECLINING CHAIR. HE CONTINUES TO YELL AT THE AIR, ASK PEOPLE TO QUIT TALKING TO HIM (NO ONE IS THERE). HE WAS PULLED INTO THE CHAVEZ AFTER BREAKFAST FOR CURSING AND YELLING LOUDLY AT PEOPLE (WHEN NO ONE IS THERE). HE STATES IT IS TOO LOUD FOR HIM. AFTER BEING IN THE CHAVEZ FOR A FEW MINUTES HE STARTED QUIETING DOWN. HE TOOK HIS MEDICATIONS WITHOUT PROBLEMS NOTED. HE ATE WELL WHEN ASSISTED BY STAFF.
--- NOTE | 2019-11-18 15:46 | NUR ---
RT Progress Note- Jorge continues to provide limited participation in structured recreation groups. This is d/t his impulsive behaviors of yelling out and disrupting group. When calm, Jorge is able to remain present in group though participation still remains limited d/t his cognitive deficit. He has been receptive to 1;1 interaction-- music, ball toss at times. RT staff will continue to encourage participation when appropriate and will provide 1;1 intervention as needed
[2019-11-18 18:57] VITALS: BP 128/83
[2019-11-19 02:56] VITALS: BP 128/83
--- NOTE | 2019-11-19 03:48 | NUR ---
Assumed care on 11/18/19 @ 19:15, seated in a fahad chair in the lara just outside the nurses desk. Somewhat agitated, speaking to persons that are not present, speaking to persons on the phone, when he has no phone in his hand. PRN Thorazine 75mg P.O. provided @ 22:45 for restlessness and agitation. Remains awake and agitated @ 23:40, obtained an order from Dr. Casiano for Trazadone 100 mg p.o. and provided crushed in ice cream. Somewhat restless, reports back pain 5/10, Tylenol 650 provided @ 01:30, Toileted x2 staff and transferred to bed, on follow up assessment for Tylenol, noted to be sleeping. Rested calmly in bed for the duration of the night with bed in low position, bed alarm set, eyes closed and respirations even and unlabored. Will continue to monitor as per unit protocol for safety and comfort.
--- NOTE | 2019-11-19 06:04 | NUR ---
slept 5.8 hours overnight
[2019-11-19 07:37] VITALS: BP 99/66
--- NOTE | 2019-11-19 10:46 | NUR ---
Yesterday Dr. Caisano and BABITA spoke about pt receiving an IM injection the night before. Dr. Casiano decided to titrate up pt's meds, and BABITA will resume locating placement given pt has not received another shot within 72 hours. BABITA followed up on the following referrals she sent: 1. [facility] - Denied. Not accepting admissions due to COVID. 2. [facility] - Denied. No beds available. 3. [facility] - Denied. Cannot meet needs. 4. [facility] - no mem. care 5. [facility] - Denied. Cannot meet needs. 6. [place] - Will accept if he has a guardian. 7. [facility] - Left a [facility] for admissions 11/18 8. - Denied. No male memory care beds. SW team will continue to follow pt during his stay on this unit.
--- NOTE | 2019-11-19 13:31 | NUR ---
Alert and orientated to person only. Attempts to converse and answer orientation questions but then states to give him more time. Denies SI/HI. Occassionally becomes frustrated and uses profanity but calms down with redirection. Breath sounds clear t/o. Reg HR auscultated. Color pink with brisk capillary refill and palpable peripheral pulses. +2 edema in lower extremities, elevated. Incontinent of large amt yellow urine per chair. Active bowel sounds over soft, rounded abdomen. States he had lg BM this AM. Coccyx area reddened, cleaned and protective barrier ointment applied. Stool cleaned from around anus. Able to stand and pivot with assistance but spends majority of time in fahad chair.
[2019-11-19 19:35] VITALS: BP 103/52
[2019-11-19 20:50] VITALS: BP 103/52
--- NOTE | 2019-11-20 03:02 | NUR ---
PATIENT HAS BEEN SITTING IN FOREST-RECLINER ON CHAIR ALARM AND LOCKED CHAIR THIS EVENING. EARLY IN EVENING HE WAS HAVING NONSENSICAL CONVERSATION WITH HIMSELF AND SOMETIMES WHOEVER WAS AROUND. AT ONE POINT HE GOT HIMSELF LAUGHING AND ALMOST CRIED HE WAS LAUGHING SO HARD. HE WAS CONVERSING WITH THE FILAMENT COIL WINDER, SONJA. PATIENT WAS ASSISTED TO THE TOILET WITH ASSIST X2. HE DID VOID ONCE HE SATON THE TOILET. HIS BOTTOM IS REDDENED FROM SITTING ALOT. HE WILL NOT STAY IN BED WHEN PLACED THERE. BARRIER CREAM USED DURING TOILETING/INCONTINENCE CARE. PATIENT TOOK HIS MEDS CRUSHED IN PUDDING. HE HAD HS SNACK OF ICECREAM ALSO. PATIENT HAS BEEN MORE CALM TONIGHT AND NOT YELLING OR CURSING. HE NAPS OFF AND ON IN THE FOREST CHAIR IN THE DINING ROOM AND QUIETLY SPEAKS TO HIMSELF WHILE PICKING AT HIS CLOTHES. PATIENT SEEMS CALM AND COMFORTABLE. NO SIGNS OF SI/HI/AVH. CONTINUING TO MONITOR.
--- NOTE | 2019-11-20 04:12 | NUR ---
PATIENT WAS AWAKENED WHEN TRYING TO REPOSITION PATIENT IN GERICHAIR. HE HAD BEEN SITTING BENT OVER FORWARD FOR A LONG TIME. PT FOUND TO BE INCONTINENT AND TAKEN TO ROOM FOR INCONTINENCE CARES. PATIENT REFUSED TO GO TO BED. PATIENT BROUGHT OUT TO DINING ROOM AGAIN. HE NOW IS YELLING AND CURSING. WILL WAIT TO SEE IF HE CALMS DOWN BEFORE REVIEWING HIS PRN MEDS FOR BEHAVIORS.
[2019-11-20 08:58] VITALS: BP 110/60
--- NOTE | 2019-11-20 10:41 | NUR ---
Assumed care of patient at 0700. Up in chair in dayroom. Pleasant when approached. Oriented to person. Cooperative [facility] assessment. Abdomen soft with active bowel sounds, breath sounds clear. No pedal edema noted. Taking medications with applesauce. Is not participating in group. Smiling at times. Sitting up. Is not agitated or aggressive. Fall precautions in place. Monitored q 12 minutes.
--- NOTE | 2019-11-20 11:22 | NUR ---
Nutrition followup: pt feeds self and continues to eat most of meals plus 100% ensure BID. No weight since 11/08 but prior weight showed an increase from last month. Unable to interview. Pt very confused, cussing in day room. BM 11/16. End stage alcoholic dementia. Keep at low nutrition risk.
--- NOTE | 2019-11-20 14:25 | NUR ---
BABITA received notification from Jacky with [employer] that she reached out to Abdi in regards to supportive documents she needs for pt's Medicaid application; such as i.d., certificate, etc. BABITA emailed Abdi and NGUYEN'xiomara Rico on it requesting that he reach out to her. SW team will continue to follow pt during his stay on this unit.
[2019-11-20 19:40] VITALS: BP 136/82
[2019-11-20 20:45] VITALS: BP 136/82
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
[2019-11-21 07:32] VITALS: BP 136/68
--- NOTE | 2019-11-21 10:51 | NUR ---
Assumed care of patieint at 0700. Up in fahad chair. Cooperative. Wears brief, pullups. Incontinent. Stands to go use the commode chair with a two person assist. Breath sounds clear, abdomen soft, bowel sounds present. Taking medications in applesauce. Became loud, disrupting morning group, agitated, taken to hallway and was pounding on the wall, yelling out. Thorazine 75 mg PO given at 0931 for agitation. Patient stated "I should just put a gun to my head." Stated this twice. Reassured, given emotional support. Has periods when he is smiling, talkative and playful.
--- NOTE | 2019-11-21 16:55 | NUR ---
BABITA and Dr. Casiano contacted Abdi to provide an update. Abdi also said he spoke to an assistant district attorney and his family is comprising a plan to come up with $4000 they need to file for guardianship of pt. BABITA told Abdi she will continue to attempt to locate placement for pt that will accept a healthcare DPOA; she will explain the family is working towards obtaining guardianship. BABITA asked if he received a msg from [employer] regarding documents needed. He said he did not. BABITA emailed [employer] with the correct number for Abdi. BABITA contacted [employer] and spoke with Sara who said before Jacky left she spoke with Abdi who said he will bring pt's certificate to the hospital tomorrow. BABITA followed up on and sent referrals as follows: 1. [facility] - Denied. Not accepting admissions due to COVID. 2. [facility] - Denied. No beds available. 3. [facility] - Denied. Cannot meet needs. 4. [facility] - no mem. care 5. [facility] - Denied. Cannot meet needs. 6. [place] - Will accept if he has a guardian. 7. [facility] - Left a msg for admissions 11/18 8. [place] - Denied. No male memory care beds. 9. [place] - Referral sent 11/20 10. [place] -Referral sent 11/20 11. [facility]-Referral sent 11/20 12. [facility] -Referral sent 11/20 13. [facility] -Referral sent 11/20 14. [facility] -Referral sent 11/20 15. [facility] -Referral sent 11/20 16. [facility] -Referral sent 11/20 17. [facility] -Referral sent 11/20 18. [facility] -Referral sent 11/20 SW team will continue to follow pt during his stay on this unit.
[2019-11-21 19:22] VITALS: BP 127/64
--- NOTE | 2019-11-22 05:10 | NUR ---
Assumed care of pt @ 1900. Pt calm et cooperative this shift with only a few episodes of cursing in a loud voice. Took medications whole without difficulty. Ambulates with assistance of fahad-chair. VSWNL. Health assessment with no abnormalities noted at present time. Unable to assess SI/HI/AH/VH due to cognitive deficit but pt does not demonstrate any signs or symptoms of acute emotional distress at present time. Currently resting in fahad-chair in dayroom with eyes open. Will continue to monitor per protocol.
[2019-11-22 07:51] VITALS: BP 145/76
--- NOTE | 2019-11-22 10:39 | NUR ---
Alert and orientated to person only. Tries to guess at other orientation questions. Becomes agitated at times but is redirectable. Sitting in chair with lap veronique in place. Denies SI/HI. Breath sounds clear. Reg HR auscultated. Color pink with brisk capillary refill and palpable peripheral pulses. +2 edema in lower extremities. Active bowel sounds over soft, flat abdomen. No stool documented since 11/18. Brief dry. Coccyx area slightly reddened, protective barrier ointment applied. Able to stand and transfer with assistance.
--- NOTE | 2019-11-22 11:48 | EKG ---
[facility] Lauryn Castro [place] [address] ELECTROCARDIOGRAM REPORT Name: GAVIN MATSON Dax Room #: [facility]- ADM IN M.R.#: [id number] Admission: 10/21/19 Attend Phys: Lonnie Casiano DO Discharge: Date of : 57 Report #: [id number] THIS REPORT FOR: cc: LEAH - Nellie family physician/PCP LEAH - Nellie family physician/PCP Chau Shine MD [facility] ~ THIS REPORT FOR: //name// [facility] Test Date: 2019-11-22 Test Time: 11:11:12 Pat Name: GAVIN MATSON Department: Room: 52 A Gender: M Chemical Pumper: DEIRDRE : 1955 Requested By: Lonnie Casiano Order Number: [id number] MD: Chau Shine Measurements Intervals Half Way Rate: 80 P: 20 NE: 171 QRS: -29 QRSD: 86 T: 31 QT: 373 QTc: 431 Interpretive Statements Sinus rhythm Probable left atrial enlargement Borderline left axis deviation Compared to ECG 11/15/2019 13:22:00 Atrial premature complex(es) no longer present T-wave abnormality no longer present Electronically Signed On 11-22-2019 11:48:24 CDT by Chau Shine [email or web address] <ELECTRONICALLY SIGNED> By: Chau Shine MD, FACC 11/22/19 1148 1111 1111 Chau Shine MD, FAC /EPI
[2019-11-22 12:57] LABS: CALCIUM 8.7 mg/dL (8.5-10.1); CREATININE 0.5 mg/dL (0.7-1.3); POTASSIUM 4.1 mmol/L (3.5-5.1)
--- NOTE | 2019-11-22 17:07 | NUR ---
Updates for placement are as follows: [facility]. [facility] - Denied. Not accepting admissions due to COVID. 2. [facility] - Denied. No beds available. 3. [facility] - Denied. Cannot meet needs. 4. [facility] - no mem. care 5. [facility] - Denied. Cannot meet needs. 6. [facility] - Will accept if he has a guardian. 7. [facility] - Left a ms for admissions 11/18 8. [facility] [place] - Denied. No male memory care beds. 9. [place] - Denied. No memory care beds. 10. [place] -Referral sent 11/20 11. [facility]-Referral sent 11/20 12. [facility] -Referral sent 11/20 13. [facility] -Referral sent 11/[address] [facility] -Referral sent 11/[address] [facility] -Referral sent 11/20 16. [facility] -Referral sent 11/20 17. [facility] -Referral sent 11/20 18. [facility] -? Admissions contacted BABITA. Awaiting a call back. BABITA received a call from Wade with [facility]. asking for a call back to [phone]. BABITA did so. No answer. SW left [facility]. BABITA team will continue to follow pt during his stay on this unit.
[2019-11-22 19:27] VITALS: BP 121/69
--- NOTE | 2019-11-23 04:35 | NUR ---
Assumed care of pt at 1900. Pt calm et cooperative this shift. Took medication whole without difficulty. Ambulates via fahad-chair. VSWNL. Health assessment with no abnormalities noted at present time. Unable to assess SI/HI/AH/VH due to cognitive deficit but pt does not demonstrate any signs or symptoms of acute emotional distress. Currently resting in fahad-chair in dayroom with eyes closed. Will continue to monitor per protocol.
[2019-11-23 08:00] VITALS: BP 158/80
--- NOTE | 2019-11-23 15:48 | NUR ---
COMPLIENT WITH TAKING MEDICATIONMS WITHOUT RESISTANCE-EATING WELL-NEEFDS ASSIST AT MEALS WILL PUT FOOD ON FLOOR OR UNDER TABLE AND NEEDS VERBAL QUEING/PROMPTING TO PUT IN MOUTH AND CHEW. HAS BEEN WALKING IN HALLWAYS MOST OF PM PACING,INTRUSIVE PICKING UP PEERS CUPS,PAPERWORK,BOOKS ETC. GAIT IS UNSTEADY AT TIMES BUT REFUSES TO SIT FOR MORE THAN 2-3 MINUTES PHIL TIMEINSISTING THAT HE HAS TO "GET GOING" OR "WALK UP THE STREET" OR "GO HAVE A CIGARETTE" REQUIRES SBA X 1 AT ALL TIMES WHEN AMBULATING SO HAS REQUIRED ALMOST CONSTANT SUPERVISION/1;1 WITH STAFF THIS PM. USING COMMODE TO VOID X1 AND DID HAVE 1 EPISODE OF URINARY INCONTINENCE. ORIENTED TO NAME ONLY-SOME MOOD LABILTIY-VERBAL AGITATION YELLING PROFANITY AT STAFF WHEN REDIRECTED AT TIMES -AT ONE POINT PUNCHED WALL WHEN TOLD HE WOULKD BE STAYING INHOSPITAL OVERNIGHT HE WAS STANDING AT EXIT DOORS
[2019-11-23 20:25] VITALS: BP 102/63
--- NOTE | 2019-11-24 04:02 | NUR ---
Assumed care of pt @ 1900. Pt calm et cooperative this shift. Took medication whole without difficulty. Ambulates via fahad-chair et ad jhon with unsteady gait. VSWNL. Health assessment with no abnormalities at present time. Unable to assess SI/HI due to cognitive deficit but pt does not demonstrate any signs or symptoms of acute emotional distress at present time. Currently resting in fahad-chair in dayroom with eyes open. Will continue to monitor per protocol.
[2019-11-24 07:30] VITALS: BP 133/73
--- NOTE | 2019-11-24 09:25 | NUR ---
Assumed patient care at 0715. Vital signs stable, LSCTA, ABD soft and non-tender, BS x's 4, no signs/symptoms of pain. Patient displays paranoia, states "be careful around him" as he points to his peer across the table. Patient made some comments to his peer, started to escalalte; this nurse re-directed him. He was compliant with his crushed medications in pudding.
[2019-11-24 19:37] VITALS: BP 124/75
[2019-11-25 03:41] VITALS: BP 124/75
--- NOTE | 2019-11-25 03:49 | NUR ---
Assumed care on -11/24/19 @ 19:30, seated in the fahad chair in front of the nurses desk. Occasionally talks on an imaginary phone, calls out obscenities to unseen persons and to peers. Took meds crushed in pudding without difficulty. PRN Thorazine 75mg P.O. provided for anxiety and agitation, PRN Trazadone 25mg provided for insomnia, @ 23:19. Became calmer, and drowsy after about an hour, toileted and transferred to bed. Has been asleep until this writing, bed in low position, bed alarm on. Will continue to monitor as per unit protocol for safety and comfort.
[2019-11-25 08:50] VITALS: BP 123/62
--- NOTE | 2019-11-25 12:22 | NUR ---
HAS BEEN VISIBLE IN [place]ROOM [place]FREQUENTLY YELLS OUT TO STAFF TO COME SIT BY HIM OR DRIVE HIM SOMEWHERE AT TIMES MISIDENTIFIES STAFF HIS FAMILY OR PREVIOUS ACQUINTANCE ETC. ORIENTED TO NAME ONLY-CONVERSATION [id number]-[id number] DIRECTED. AMBULATES IN HALLWAYS WITH SBA X 1 BUT GAIT IS UNSTEADY AND IS IMPULSIVE TRYING TO CRTAWL OVER SIDES OF CHAIR OR STEP UP ON BED. DENIES C/O PAIN. RESTLESS ATTEMPTING TO GET UP CONSTANTLY AND STATING HE NEEDS TO GO "GET THE TRUCK" OR "GO TO WORK" OR "MEET SOME PEOPLE" OR HAVE A CIGARETTE" DOES BECOME FRUSTRATED AND BEGIN TO YELL PROFANITY OR POUNDS FIST ON WALL OR TABLE.
--- NOTE | 2019-11-25 13:24 | NUR ---
BABITA received a folder with a copy of a certificate for pt in it; it is labeled for Jacky with [employer] [facility]. BABITA contacted Jacky who said she will be up to collect this from BABITA. BABITA team will continue to follow pt during her stay on this unit.
--- NOTE | 2019-11-25 15:20 | NUR ---
RT Progress Note- Jorge continues to be limited in participation in the milieu and structured recreation groups d/t cognition. He has however improved in that he has been able to remain present in groups and non disruptive when reminded to listen rather than yell out. He continues to participate in 1;1 leisure aprx 3x per week, listening to music or tossing the beach ball. Staff will continue this.
--- NOTE | 2019-11-25 16:36 | NUR ---
updates for [facility] as follows: [facility] Not [facility] due to [facility]. 2. [facility] - Denied. No beds available. 3. [facility] - Denied. Cannot meet needs. 4. [facility] [place] - no mem. care 5. [facility] - Denied. Cannot meet needs. 6. [place] - Will accept if he has a guardian. 7. [facility] - Left a msg for admissions 11/18 8. [place] - Denied. No male memory care beds. 9. [place] - Denied. No memory care beds. 10. [place] -No answer from facility 11/24 11. [facility]- Denied. Not accepting admissions at this time. 12. [facility] referral 11/24 13. [facility] - Denied. Cannot meet needs. 14. [facility] - Left msg with admissions 11/24 15. [facility] - Left msg with admissions 11/24 16. [facility] - Denied. Not accepting admissions. 17. [facility] -Left msg with admissions 11/24 18. [facility] -?Admissions contacted BABITA. Awaiting a call back. SW team will continue to follow pt during his stay on this unit.
[2019-11-25 19:31] VITALS: BP 162/87
[2019-11-25 23:21] VITALS: BP 162/87
--- NOTE | 2019-11-25 23:33 | NUR ---
Assumed care on 11/25/19, seated in a fahad chair in the lara near the nurses desk. Yelling out occasionally, talking on an imaginary phone occcasionally. Coooperated with assessment and compliant with medication administration, taking meds crushed in pudding/ice cream. Would not cooperate with staff trying to provide toileting. Is able to stand and ambulate, but refused to stand and walk to the toilet. PRN Thorizine 75mg po and Tylenol 650 provided for shoulder/head pain of 5/10 @ 2200. Is seated in the fahad chair at this writing, calm and has eyes closed, respiration even and unlabored.
[2019-11-26 07:41] VITALS: BP 125/71
--- NOTE | 2019-11-26 10:37 | NUR ---
Alert to name only but does not state name. Confused speech. When given water to drink with meds he asked if it was vodka. Some coherent speech at times. Denies SI/HI. When asked orientation questions he stated he couldn't remember d/t not being that smart. Compliant with meds. Able to stand with assistance but mostly sits in fahad chair with lap veronique fastened in front. Breath sounds clear. Reg HR auscultated. Color pink with brisk capillary refill and palpable peripheral pulses. +2 edema in feet. Active bowel sounds over soft, flat abdomen. Incontinent of urine this AM.
--- NOTE | 2019-11-26 11:08 | NUR ---
Nutrition followup: Pt feeding self meals eating 75-100%, 100% most ensure enlive BID. No recent BM documented. Last weight up 6# from admit. On B12 supplementation. Very confused. Continue as low nutrition risk with interventions in place.
--- NOTE | 2019-11-26 14:10 | NUR ---
BABITA followed up and and sent referrals to the followin. [facility] - Denied. Not accepting admissions due to COVID. 2. [facility] - Denied. No beds available. 3. [facility] - Denied. Cannot meet needs. 4. [place] - no mem. care 5. [facility] - Denied. Cannot meet needs. 6. [place] - Will accept if he has a guardian. 7. [facility] - Left a msg for admissions 11/18 8. [place] - Denied. No male memory care beds. 9. [place] - Denied. No memory care beds. 10. [place] -No answer from facility 11/24 11. [facility]- Denied. Not accepting admissions at this time. 12. [facility] - Denied. Not accepting Admissions at this time. 13. [facility] - Denied. Cannot meet needs. 14. [facility] - Left msg with admissions 11/24 15. [facility] msg with admissions 11/24 16. [facility] - Denied. Not accepting admissions. 17. [facility] -Left msg with admissions 11/24 18. [facility] -?Admissions contacted BABITA. Awaiting a call back. 11/24 19. [facility] - Denied. No Medicaid beds. 20. [facility] - No mem. care. 21. [facility] referral sent 11/25 22. [facility] - referral sent 11/25 23. [place] - referral sent 11/25 24. [facility] - referral sent 11/25 25. [place] - referral sent 11/25 26. [facility] - referral sent 11/25 27. [facility] - referral sent 11/25 28. [place] - referral sent 11/25 29. [place] - referral sent 11/25 30. [place] - referral sent 11/25 31. [facility] - referral sent 11/25 BABITA sent an email to Abdi and provided an update SW team will continue to follow pt during his stay on this unit.
[2019-11-26 19:30] VITALS: BP 125/74
--- NOTE | 2019-11-26 22:08 | NUR ---
PATIENT ASSESSED. AND IS ALERT X 1. VERY AGITATED AT TIMES. TAKEN HIS HS MEDS BUT REFUSED HIS SENNA. SITS IN FOREST CHAIR. IN CONT OF B&B. SI/HI NOTED. ATE APPLESAUSE WITH HIS MEDS. REMAINS A FALL RISK. LAP KD IN FOREST CHAIR FOR SAFETY. PLACED TO BED WITH OUT PROBLEMS.CONT PLAN OF CARE.
--- NOTE | 2019-11-26 23:46 | NUR ---
11-26-19 CARE TRANSFERRED AT 2300 OBSERVED PT SUPINE IN BED RESTING WITH EYES CLOSED, 16 RR EVEN AND NONLABORED ON RA. ZERO S/S OF ACUTE DISTRESS NOTED, PT WILL CONTINUE TO BE MONITOR PER [facility] PROTOCOL.
[2019-11-27 08:55] VITALS: BP 117/62
--- NOTE | 2019-11-27 11:38 | NUR ---
ORIENTED TO NAME ONLY THIS AM-SOME EPISODES OF RESTLESSNESS INCREASED ANXIETY/AGITATION EVIDENCED BY YELLING OUT,SWEARING WHICH IS USUALLY SHORT LIVES-RESPONDS TO SUPPORT,REASSURANCE REDIRECTROM NURSING STAFF-DOES APPEAR MORE REDIRECTABLE COMPARED TO PREVIOUS SHIFT AND WAS ABLE TO STAY IN DAYROOM FOR ENTIRE RT AM SESSION{HAS BEEN LOUD/DISRUPTIVE PREVIOUS DAYS) APPETITE GOOD AND ABLE TO FEED SELF FINGER FOODS-TAKES PO FLUIDS WELL, 2 EPISODES OF URINARY INCOMTINECE THIS AM REQUIRING BRIEF/CLOTHING CHANGE-IS MILDLY AGITATED DURING INCONTINET CARE SWEARING AND CURSING AT STAFF-ATTEMPTING TO KICK STAFF AND GRABBING PANTS,BRIEFS ETC AND REFUSING TO LET GO
--- NOTE | 2019-11-27 12:51 | NUR ---
BABITA received a call from Aarti with [employer] asking for a [id number] and pt's Medicaid application. Adeel is interested in pt. BABITA created a [id number] and faxed it along with pt's Medicaid appt to Aarti. BABITA notified Abdi of such via email. BABITA team will continue to follow pt during his stay on this unit.
--- NOTE | 2019-11-27 18:12 | NUR ---
FEEDING [id number] TO NAME ONLY. RESTLESS ATTEMPTING TO GET UP ON OWN BUT MORE DIRECTABLE-REMAINS HIGH FALLS RISK D/T IMPULSIVE BEHAVIOR. DID PARTICIPATE IN PM RT GROUP SINGING WITH STAFF AND PEERS. INCONTINET OF URINE THIS PM BUT WAS COOPERATIVE WITH BRIEF CHANGE AND INCONTINENT CARE
[2019-11-27 19:22] VITALS: BP 122/64
[2019-11-27 21:16] VITALS: BP 122/64
--- NOTE | 2019-11-28 04:51 | NUR ---
Assumed care of patient this pm shift. Patient in good spirits, pleasantly confused. Patient is alert and oriented to self only. Patients affect is variable. Patient takes medications crushed in pudding. Patient denies hi/si. Patient denies pain. Patients assessment shows no signs of acute distress. Patient requires assist x1 to toilet. Patient is considered a falls risk and has on a yellow shirt and yellow socks. We will continue to monitor per hospital protocol.
[2019-11-28 09:03] VITALS: BP 156/63
--- NOTE | 2019-11-28 10:06 | NUR ---
BABITA received a call from Aarti with [employer] asking for a phone call back to [phone]. BABITA did so and was told by Aarti that she looked up pt's Medicaid application on [employer] and pt's application is showing rejected on 11/05/2019; this is dated the day before the application was submitted by [employer]. BABITA looked up pt on [employer] and had the same result. BABITA then contacted Jacky with [employer] who reviewed the same and said she has to contact Medicaid and then contact BABITA back. BABITA provided an update to [facility] Director. BABITA team will continue to follow pt during his stay on this unit.
--- NOTE | 2019-11-28 10:32 | NUR ---
HAS BEEN VISIBLE IN DAYROOM IN [facility] [place]-DID FEED SELF BREAKFAST AND PARTICIPATES IN SCHEDULED 0900 RT GROUP. INCONTINENT OF URINE X 2 THIS AM AND WAS RESISITVE WITH STAFF ATTEMPTS TO CHANGE BRIEFS-NOT COMBATIVE IN PREVIOUS DAYS.ORIENTED TO NAME ONLY. DENIES PAIN/DISCOMFORT
--- NOTE | 2019-11-28 16:30 | NUR ---
SOME INCREASE IN IRRITABILTY FRUSTRATION NOTED AFTER 3 PM-ATTEMPTING TO GET OUT OF GERICHAIR REPEATADLY-AMBULATED SEVERAL TIMES IN HALLWAY-PROVIDED WITH SNACK-BEVERAGES FREQUENTLY AND TAKES FOOD/FLUIDS WELL.BRIEF CHANGE/TOILET OFFERED Q 2-3 HRS. ORIENTED TO NAME ONLY. REDNESS TO COCYX CONTINUES-PAD PLACED IN GERICHAIR-REFUSES TO LAY DOWN IN BED-BARRIER CREAM APPLIED WITH EACH BRIEF CHANGE
[2019-11-28 19:29] VITALS: BP 104/57
--- NOTE | 2019-11-29 05:47 | NUR ---
Assumed care of pt @ 1900. Pt calm et cooperative with pleasant demeanor this shift. Took medications whole without difficulty. ambulates with assistance of fahad-chair. VSWNL. Health assessment with no abnormalities noted at this time. Unable to assess SI/HI due to cognitive deficit but pt does not demonstrate any signs or symptoms of emotional distress at present time. Currently resting in fahad-chair in dayroom with eyes closed. Will continue to monitor per protocol.
[2019-11-29 07:22] VITALS: BP 110/62
--- NOTE | 2019-11-29 12:54 | NUR ---
PATIENT WAS UP IN GERICHAIR, SITTING IN DAYROOM WHEN CARE ASSUMED THIS MORNING. PATIENT IS ALERT, FORGETFUL, VERY CONFUSED. HE WAS IRRITABLE, AGITATION, YELLING, AND USING CURSE WORDS AT STAFF THIS MORNING. PATIENT INITIALLY REFUSE MORNING MEDICATIONS, BUT LATTER TOOK THEM WITH LOTS OF ENCOURAGEMENT FROM MULTIPLE STAFF, MEDS CRUSHED IN APPLE SOURCE. INCONTINENT CARE PROVIDED BY STAFF. PATIENT IS EATING MEALS, AND DRINKING FLUID FAIRLY WELL. PATIENT DENIES SUICIDAL/HOMICIDAL IDEATION, NOT ABLE TO APPROPRIATELY RESPOND TO FURTHER ASSESSMENT QUESTIONS DUE TO GOCNITIVE IMPAIRMENT. PATIENT IS NOW CALM, SITTING IN GERICHAIR, TAKING SHORT NAPS. NO AGGRESSION NOTED AT THIS TIME, WILL MONITOR FOR SAFETY.
--- NOTE | 2019-11-29 15:24 | NUR ---
BABITA inputted pt's info into mydss.gov to see if his application is showing yet. BABITA does now see his application. BABITA contacted Aarti with [employer] and left a vm stating such. SW team will continue to follow pt during his stay on this unit.
[2019-11-29 19:26] VITALS: BP 137/71
--- NOTE | 2019-11-30 04:14 | NUR ---
Assumed care of pt @ 1900. Pt calm et cooperative this shift. Took medications whole without difficulty. Ambulates with assistance of fahad-chair. VSWNL. Health assessment with no abnormalities noted at present time. Denies SI/HI/AVH at present time while lucid. Does not frequently socialize with peers. Currently resting in fahad-chair in dayroom with eyes closed. Will continue t o monitor per protocol.
--- NOTE | 2019-11-30 10:54 | NUR ---
PATIENT WAS IN GERICHAIR, SITTING IN DAYROOM WHEN CARE ASSUMED. PATIENT TOOK MORNING MEDICATION CRUSHED IN APPLE SOURCE WITHOUT DIFFICULTY. PATIENT IS ABLE TO FEED SELF, COMSUMED ABOUT 50% OF BREAKFAST, PATIENT IS DRINKING FLUID FAIRLY WELL. PATIENT DENIES SUICIDAL IDEATION, HE DENIES HAVING PHYSICAL PAIN, NOT ABLE TO APPROPRIATELY RESPOND TO FURTHER ASSESSMENT QUESTIONS DUE TO COGNITIVE IMPAIRMENT. PATIENT STARTED YELLING SHORTLY AFTER BREAKFAST, HE WAS TAKEN OUT OF DAYROOM TO NURSES STATION AREA FOR CONSTANT REDIRECTION, AND CLOSE OBSERVATION. AFFECT IS BLUNTED, MOOD IS IRRITABLE, NO SIGN OF ACUTE DISTRESS NOTED AT THIS TIME, WILL MONITOR FOR SAFETY.
[2019-11-30 12:21] VITALS: BP 132/64
[2019-11-30 19:30] VITALS: BP 150/77
--- NOTE | 2019-12-01 04:23 | NUR ---
Assumed care of pt @ 1900. Pt calm et cooperative this shift. Took medications whole without difficulty. Ambulates with assistance of fahad-chair. VSWNL. Health assessment with no abnormalities noted at present time. Unable to assess SI/HI/AVH due to patient's cognitive deficit but patient does not demonstrate any signs or symptoms of acute emotional distress at present time. Currently resting in fahad-chair in dayroom with eyes open. Will continue to monitor per unit protocol.
[2019-12-01 06:27] LABS: HEMATOCRIT 34.8 % (42.0-52.0); HEMOGLOBIN 11.5 gm/dL (14.0-18.0); MCH 30.6 pg (26.0-34.0); MCHC 33.2 g/dL (28.0-37.0); RBC 3.78 mil/uL (4.50-6.00); RDW 14.8 % (10.5-14.5); WBC 10.1 thou/uL (4.0-11.0)
[2019-12-01 06:41] LABS: ALBUMIN 3.1 g/dL (3.4-5.0); CALCIUM 8.6 mg/dL (8.5-10.1); CREATININE 0.6 mg/dL (0.7-1.3); TOTAL BILIRUBIN 0.4 mg/dL (0.2-1.0); TOTAL PROTEIN 6.4 g/dL (6.4-8.2)
[2019-12-01 07:44] VITALS: BP 108/49
--- NOTE | 2019-12-01 11:30 | NUR ---
Assumed care 0700. Up in the recliner for breakfast. Fed self after food set up. was overwhelmed by too much noise. moved to the lara after breakfast to decrease stimulation. At one point wanted to sit at a table. Pt. kept chair from being pushed under the table. He began cussing, calling names of his staff. He continues to lean forward in the recliner, yelling profanities and very confused words/phrases. Asked a male RN if he was his grandson. At times has upper extremity tremor. No voiced concerns ascertained. No c/o pain. Most of the time has an intense facial expression. Wants to fidget with something most of the time.
--- NOTE | 2019-12-01 16:10 | NUR ---
Labs out of range shown to Dr. Hooper who said she would order to hold the Depakote tonight. QGY=890 H (15-37); UPN=012 H (30-65), Alk. Phos.=183 H (46-116), vALPROIC aCID =3.1 l (3.4-5) Had soft BM today. behavioral disturbances have decreased in frequency and intensity. Still had about three loud cussing/inappropriate name calling episodes with no apparent provacation.
[2019-12-01 19:53] VITALS: BP 130/84
[2019-12-02 02:52] VITALS: BP 130/84
--- NOTE | 2019-12-02 03:00 | NUR ---
Assumed care on 12/01/19 @ 19:15, New orders to hold tylenol, depakote sprinkles, Thorazine. PO meds given @ 20:00, compliant with medications, taking crushed in pudding. Anxious, agressive with staff and combatitive with care. Got a One time order for 100MG IM Thorazine from Dr. Hooper, administered @ 22:50. Became drowsy and transferred to bed x2 staff @ 23:45. Incontinent of Bowel and bladder. Incontinent care provided. Bed in low position, bed alarm set.
[2019-12-02 05:57] LABS: ALBUMIN 2.7 g/dL (3.4-5.0); CREATININE 0.8 mg/dL (0.7-1.3); POTASSIUM 4.7 mmol/L (3.5-5.1); TOTAL BILIRUBIN 0.9 mg/dL (0.2-1.0); TOTAL PROTEIN 6.3 g/dL (6.4-8.2)
[2019-12-02 07:34] VITALS: BP 131/70
--- NOTE | 2019-12-02 12:23 | EKG ---
[facility] [place] [address] ELECTROCARDIOGRAM REPORT Name: GAVIN MATSON Dax Room #: 52- ADM IN M.R.#: [id number] Admission: 10/21/19 Attend Phys: Lonnie Casiano DO Discharge: Date of : 57 Report #: [id number] THIS REPORT FOR: cc: LEAH - Nellie family physician/PCP LEAH - Nellie family physician/PCP Chau Shine MD [facility] ~ THIS REPORT FOR: //name// [facility] Test Date: 2019-12-02 Test Time: 11:27:53 Pat Name: GAVIN MATSON Department: Room: 52 A Gender: M [employer]: DEIRDRE : 1955 Requested By: Anna Hooper Order Number: [id number] MD: Chau Shine Measurements Intervals [place] Rate: 75 P: 76 NH: 163 QRS: -24 QRSD: 94 T: 41 QT: 403 QTc: 451 Interpretive Statements Sinus rhythm Borderline left axis deviation Low voltage, precordial leads Baseline wander in lead(s) V3 Compared to ECG 11/22/2019 11:11:12 Low QRS voltage now present Electronically Signed On 12-02-2019 12:23:01 CDT by Chau Shine [email or web address] <ELECTRONICALLY SIGNED> By: Chau Shine MD, FACC 12/02/19 1223 1127 1127 Chau Shine MD, [facility] /EPI
[2019-12-02 19:38] VITALS: BP 149/81
[2019-12-03 03:38] VITALS: BP 149/81
--- NOTE | 2019-12-03 04:44 | NUR ---
Assumed care on 12/02/19 @ 19:15, Thorazine 100 mg scheduled for @ HS, and Trazadone 125 p.o. provided both @ HS. X2 staff required to provide incontinent care. Resists sitting on the toilet. Due to incontinence, unable to collect UA sample. Rested overnight in a fahad chair in the day room.
[2019-12-03 05:29] LABS: HEMOGLOBIN 12.1 gm/dL (14.0-18.0); MCH 30.3 pg (26.0-34.0); MCHC 32.8 g/dL (28.0-37.0); MCV 92.4 fL (80.0-100.0); PLATELET COUNT 264 thou/uL (150-400); RDW 14.8 % (10.5-14.5)
[2019-12-03 05:33] LABS: SGOT 488 U/L (15-37); SGPT 878 U/L (30-65)
[2019-12-03 06:49] LABS: ABSOLUTE NEUTROPHILS 8.3 thou/uL (1.4-8.2)
[2019-12-03 06:50] LABS: PLATELET ESTIMATE NORMAL
[2019-12-03 07:16] VITALS: BP 142/74
[2019-12-03 19:30] VITALS: BP 147/78
--- NOTE | 2019-12-03 19:47 | NUR ---
SOME VERBAL AGITATION-YELLING CURSING ETC WHEN INCONTINENT CARE PROVIDED. DOES HAVE INFREQUENT COUGH-CLEAR SPUTUM. TEMP RECHECK AT APPROX 1030 98.2 LUNGS DIMINSHED IN BASES-CXR DONE ON 12/01 PM REVIEWED-DENIES SOB-O2 SAT 100 PERCENT ON RA. REMAINS ON HIGH FALLS RISK-REQUIRES ASSIST WITH ALL ADLS-APPETITE GOOD. NO PHYSICAL AGGRESSION THIS SHIFT-TAKE MEDS CRUSHED IN PUDDING
--- NOTE | 2019-12-04 05:52 | NUR ---
12-03-19 CARE TRANSFERRED 0 OBSERVED PT SITTING IN GERICHAIR IN DAY ROOM. 1999 PT AAOX1, VSS, RR EVEN AND NONLABORED ON RA, PT DENIES ANY PAIN AND SI/HI BUT PRESENTS CONFUSED AND PLEASANT AT THIS TIME. DURING MEDICATION ADMIN PT HAD NO DIFFICULTIES AND REMAINED CALM. PT HAS BEEN NPO SINCE MIDNIGHT. NO S/S OF ACUTE DISTRES NOTED, PT WILL CONTINUE TO BE MONITOR PER [facility] PROTOCOL.
[2019-12-04 07:30] VITALS: BP 129/62
--- NOTE | 2019-12-04 08:55 | NUR ---
Nutrition followup: pt continues on [facility] unit. Feeds self 75-100% of meals, 100% most ensure supplements BID. Weight up 5# from admit. On bowel regimen, BM 12/01. Continues on B12 supplementation. Increasing LFTs. Plan Ultrasound abdomen to rule out acute process. Per physician, medication reaction suspected. Continue as low nutrition risk with interventions in place.
[2019-12-04 12:20] LABS: ALBUMIN 2.7 g/dL (3.4-5.0); CALCIUM 8.5 mg/dL (8.5-10.1); CREATININE 0.7 mg/dL (0.7-1.3); TOTAL BILIRUBIN 2.5 mg/dL (0.2-1.0); TOTAL PROTEIN 6.7 g/dL (6.4-8.2)
--- NOTE | 2019-12-04 12:21 | NUR ---
BABITA has contacted Aarti with [employer] over the past few days several times and has not received an answer. BABITA contacted the front office java developer of [facility] and inquired if she was availble. BABITA was told that Aarti had a in the family and will be out of the office for 3 weesks. BABITA was given the contact info for the person who is covering for Aarti named Tiffanysrikanth at [phone]. BABITA contacted Anne, no answer. BABITA left a msg. BABITA and Dr. Casiano contacted Abdi and provided an update to him on pt's placement issues and of medical concerns with pt's liver. BABITA team will continue to follow pt during his stay on this unit.
[2019-12-04 15:43] LABS: PROTIME 10.4 Seconds (9.3-11.4)
[2019-12-04 15:53] LABS: DIRECT BILIRUBIN 2.4 mg/dL (<0.1-0.2)
--- NOTE | 2019-12-04 15:57 | NUR ---
PATIENT WAS UP IN [facility], SITTING IN DAY ROOM WHEN CARE ASSUMED. PATIENT REMAIN ALERT, FORGETFUL, AND CONFUSED. PATIENT TOOK MORNING MEDICATION CRUSHED IN APPLE SOURCE, WELL TOLERATED. PATIENT IS EATING MEALS, AND DRINKING FLUID WELL, REQUIRES ASSIST OF STAFF TO FEED. PATIENT DENIES SUICIDAL/HOMICIDAL IDEATION, HE IS NOT ABLE TO APPROPRIATELY RESPOND TO FURTHER ASSESSMENT QUESTIONS. AFFECT IS FLAT/BLUNTED, NO AGGRESSION OR AGITATION NOTED AT THIS TIME. PATIENT IS INCONTINENT OF BOWEL/BLADDER, HAD BOWEL MOVEMENT THIS AFTERNOON, INCONTINENT CARE GIVEN PER STAFF. DRESSING TO BUTTOCKS AREA CHANGED. ATTEMPTED X 2 TO TAKE PICTURE OF ESCORIATION X 2 TO NO AVIAL, AFTER TAKING PICTURE OF THE AREA THIS MORNING, THE CAMERA SHOWS "NO IMAGES" I TRIED TO PRINT THE PICTURE, THIS EMERGENCY SPILL RESPONSE TECHNICIAN ATTEMPTED AGAIN THIS AFTERNOON, PATIENT WAS PUT IN BED FOR REST, AND TO TAKE PRESSURE OFF BUTTOCK, MESSAGE TO CHARGE THE BATTERY CAME UP, BATTERY TO CAMERA CURRENTLY CHARGING. NO SIGN OF ACUTE DISTRESS NOTED AT THIS TIME, WILL MONITOR FOR SAFETY.
[2019-12-04 19:25] VITALS: BP 122/79
[2019-12-04 21:06] VITALS: BP 122/79
[2019-12-05 01:06] LABS: HAV IgM AB (ANTI-HAV IgM) Negative (Negative); HEPATITIS B SURFACE AG Negative (Negative); HEPATITIS C VIRUS AB <0.1 (0.0-0.9)
--- NOTE | 2019-12-05 01:30 | NUR ---
Assumed care of patient this pm shift. Patient is calm and cooperative occasionally tremoring. Patient is also running a temperature. Patient states that he is not feeling well. Patient is alert and oriented to self. Patient takes medications crushed in pudding. Patient is resistive to cares such as toileting. Patients affect is blunted. Patients assessment shows no signs of acute distress. Patient is considered a falls risk and has on a yellow shirt and socks. Patient is currently awake sitting in a fahad chair in the [facility]. We will continue to monitor per hospital policy.
[2019-12-05 08:00] VITALS: BP 131/70
[2019-12-05 09:53] LABS: ALBUMIN 2.6 g/dL (3.4-5.0); CALCIUM 8.5 mg/dL (8.5-10.1); CREATININE 0.6 mg/dL (0.7-1.3); POTASSIUM 3.7 mmol/L (3.5-5.1); TOTAL BILIRUBIN 4.2 mg/dL (0.2-1.0); TOTAL PROTEIN 6.6 g/dL (6.4-8.2)
--- NOTE | 2019-12-05 11:39 | NUR ---
BABITA spoke with Anne about pt. She said she can now see his new application online and asked BABITA to fax updates to her at [phone] so she can forward to [place]. SW team will continue to follow pt during his stay on this unit.
--- NOTE | 2019-12-05 14:41 | NUR ---
Assume patient care around 7am, calm and disoriented; tolerated food well, no n/v. chair rest, calm and cooperative.
[2019-12-05 19:38] VITALS: BP 132/72
--- NOTE | 2019-12-05 21:28 | NUR ---
Assumed care on 12-05-19 @ 19:15, Seated in fahad chair in the day room. Cooperative with assessment, HRRR, Lungs CTA bilateraly, ABD N x 4 Q. Compliant with medications, taking meds crushed in pudding. Drank 4 oz of water with meds. Will continue to monitor as per unit protocol for safety and comfort.
--- NOTE | 2019-12-06 01:04 | NUR ---
Assumed pt's care this pm shift. Pt was on a gerichair. Meds already given prior to assumption of care. Cooperative with meds per RN. Pt is very confused. Makes unitelligble conversations. Pt can be agitated, but have remained calm so far. Pt currently on a gerichair in the dayroom. Sleeping off and on. Will continue to monitor.
[2019-12-06 07:53] VITALS: BP 114/69
--- NOTE | 2019-12-06 13:10 | NUR ---
HAS BEEN IN GERICHAIR IN DAYROOM FOR MAJORITY OF SHIFT-ORIENTED TO NAME ONLY-HAS BRIEF EPISODES OF VERBAL AGITATION-YELLING OUT AND WILL OCCASSIONALLY SWEAR AT [facility]-NO PHYSICAL AGGRESSION SO FAR THIS SHIFT. TAKES MEDS CRUSHED IN ICE CREAM. DENIES PAIN. IS NOTED TO HAVE COURSE COUGH WITH OCCASSIONAL WHITISH THICK PHLEGM WHICH HE SPITS ON THE FLOOR. REMAINS HIGH FALLS RISK D/T UNSTEADY BEHAVIOR-IMPULSIVITY
--- NOTE | 2019-12-06 15:14 | NUR ---
BABITA contacted [facility] with [facility]. No answer. BABITA left [facility].
[2019-12-06 16:00] VITALS: BP 114/69
--- NOTE | 2019-12-06 16:00 | NUR ---
ASSUMBED CARE OF PATIENT. PT HAS BEEN SMILING AND TALKING WITH STAFF. PT ACCEPTED BLOOD DRAW TODAY WITH STAFF PRESENT. PT ABLE TO FEED SELF TODAY. PT MAKES LITTLE SOUNDS AND SEEMS HAPPY. NO CURSING NOTED FROM PATIENT.
[2019-12-06 16:20] LABS: HEMATOCRIT 34.9 % (42.0-52.0); HEMOGLOBIN 11.7 gm/dL (14.0-18.0); MCH 30.8 pg (26.0-34.0); MCHC 33.6 g/dL (28.0-37.0); MCV 91.6 fL (80.0-100.0); PLATELET COUNT 315 thou/uL (150-400); RBC 3.81 mil/uL (4.50-6.00); RDW 15.8 % (10.5-14.5); WBC 12.4 thou/uL (4.0-11.0)
[2019-12-06 16:28] LABS: CALCIUM 8.5 mg/dL (8.5-10.1); CREATININE 0.5 mg/dL (0.7-1.3); POTASSIUM 4.3 mmol/L (3.5-5.1)
[2019-12-06 16:33] LABS: ALBUMIN 2.7 g/dL (3.4-5.0); TOTAL BILIRUBIN 5.6 mg/dL (0.2-1.0)
[2019-12-06 16:37] LABS: ABSOLUTE NEUTROPHILS 9.1 thou/uL (1.4-8.2); ANISOCYTOSIS 1+
[2019-12-06 16:38] LABS: POLYCHROMASIA OCCASIONAL
[2019-12-06 19:50] VITALS: BP 120/64
--- NOTE | 2019-12-07 03:02 | NUR ---
Assumed pt's care this pm shift. Pt oriented to self. Confused. forgetful. Tangential. Pt was in the dayroom at time of assessment. Skin and eyes are both Jaundiced. Pt took meds whole. Was taken to bed. Pt's void was very yellow. Pt stayed in bed till about midnight before attempting to get out of bed. Pt now in the dayroom, awake. Will continue to monitor.
[2019-12-07 06:55] LABS: ALBUMIN 2.5 g/dL (3.4-5.0); DIRECT BILIRUBIN 5.9 mg/dL (<0.1-0.2); TOTAL BILIRUBIN 6.7 mg/dL (0.2-1.0); TOTAL PROTEIN 6.5 g/dL (6.4-8.2)
[2019-12-07 07:39] VITALS: BP 145/74
--- NOTE | 2019-12-07 18:23 | NUR ---
Alert to name only. Interacts with staff and peers with confused speech and some coherent statements. Denies SI/HI. Breath sounds clear. Reg HR auscultated. Color pink with yellow undertones. Sclera slightly yellow. Brisk capillary refill and palpable peripheral pulses. +2 edema in lower extremities. Incontinent of large amt chaparrita colored urine per brief and pad. Active bowel sounds over flat abdomen. Ambulated with slightly unsteady gait from room to dining area X 2 today. Thorazine held today d/t increasing LFTs. Consult sent for gastroenterolgy. Scabbed area in coccyx area, cleaned and optiform drsg applied. Calm most of the day. Currently sitting in day room with peers without s/o distress. day room with peers.
[2019-12-07 19:53] VITALS: BP 149/89
--- NOTE | 2019-12-08 02:33 | NUR ---
Assumed pt's care this pm shift. Pt was calm and cooperative with care. Pleasant with happy affect. Tangential in communication. Jaundice still present. Pt took meds whole. Slept from about 2100 till about midnight. Started getting out of bed and was brought out to the dayroom. Pt currently on the fahad-chair wide awake in the dayroom. Willl continue to monitor.
[2019-12-08 07:52] VITALS: BP 128/76
--- NOTE | 2019-12-08 17:39 | NUR ---
Oriented to name only. Speech slurred and rambling, very difficult to understand. Ate all 3 meals in dinning room, mostly played with food and made a mess. Denies pain. Takes shirt off frequently. Had moderate soft stool. Denies pain.
[2019-12-08 19:56] VITALS: BP 148/69
--- NOTE | 2019-12-09 03:03 | NUR ---
ASSUMED PT CARE AROUND 1939. VSS. ALERT AND AWAKE. DOES NOT LIKE TO PUT THIS SHIRT ON. TRIED MULTIPLE TIMES AND NOTICED THAT HE GETS VERY ANGRY WHEN WE TRY TO APPLY CLOTHES ON HIM. STILL JAUNDICED. DID TAKE PILLS OK. NO S/S ACUTE DISTRESS NOTED OR REPORTED AT THIS TIME. WILL CONT TO MONITOR FOR ANY CHANGES IN CONDITION.
[2019-12-09 07:46] VITALS: BP 117/64
--- NOTE | 2019-12-09 11:41 | NUR ---
RT Progress Note- Jorge continues to be present in the milieu as well as AM group therapy. Jorge's impulsions have improved and he no longer offers disruptive behaviors to the milieu or group. Jorge's cognition limits his level of participation but he is observed to participate to his ability level. Staff will continue to encourage participation and positive behaviors.
--- NOTE | 2019-12-09 17:40 | NUR ---
PT AWAKE, ALERT TO SELF. VSS. PT DID NOT ANSWER ASSESSMENT QUESTIONS. PT TOLERATES MEDS AND MEALS. PT ATTENDS GROUPS WITH LITTLE PARTICIPATION. SOME INTERACTION WITH STAFF. POSSIBLE PLANS FOR DISCHARGE TOMORROW. COVID TEST DONE.
[2019-12-09 19:31] VITALS: BP 135/63
--- NOTE | 2019-12-09 20:57 | NUR ---
ASSUMED CARE FROM DAY SHIFT PT UP IN FOREST CHAIR,AWAKE WITH RAMBLING SPEECH , BUT CALM AND COOPERATIVE, PT ABLE TO TAKE MEDICATION WITH PROBLEMS.
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
[2019-12-10 07:18] LABS: ALBUMIN 2.6 g/dL (3.4-5.0); CALCIUM 8.7 mg/dL (8.5-10.1); CREATININE 0.7 mg/dL (0.7-1.3); POTASSIUM 3.7 mmol/L (3.5-5.1); TOTAL BILIRUBIN 13.8 mg/dL (0.2-1.0); TOTAL PROTEIN 6.6 g/dL (6.4-8.2)
[2019-12-10] MEDS ORDERED: FLOMAX0.4 MG PO (08:11)
[2019-12-10] MEDS ORDERED: NORVASC10 MG PO (08:12)
[2019-12-10] MEDS ORDERED: HALOPERIDOL 1 MG1 MG PO (08:12)
[2019-12-10] MEDS ORDERED: MIRALAX17 GM PO (08:13)
[2019-12-10] MEDS ORDERED: SENNA-TIME S T1 EACH PO (08:14)
[2019-12-10] MEDS ORDERED: B-12500 MCG PO (08:14)
[2019-12-10 09:19] VITALS: BP 103/53
[2019-12-10 10:14] VITALS: BP 148/79
--- NOTE | 2019-12-10 11:44 | NUR ---
Alert and orientated to name only. Confused speech with occassional coherent statement. Walks with supervision from room to day room with slow, slightly unsteady gait. No speech or behavior suggestive of SI/HI. Sitting calmly in day room in fahad chair. Did stand up several times and had one fall at approximately 1015. VSS and family notified. Breath sounds clear. Reg HR auscultated. Color jaundiced with brisk capillary refill and palpable peripheral pulses. +1-2 non pitting edema in lower extremities. Toenails clipped. Incontinent of yellow urine and medium brown formed stool. Active bowel sounds over soft, flat abdomen. Attempted X 2 to call report to [facility]. Chelita states that someone will have to call back to receive report d/t them being in department mtg. [facility] called back and received report. Son Abdi Shen who is DPOA called, agrees with transfer to [facility]. Transported via to [employer] for transport back to [facility] at 1100. No s/o distress.
--- NOTE | 2019-12-10 11:46 | NUR ---
BABITA D/C NOTE BABITA faxed to [facility] pt's d/c docs including a copy of his COVID results and [id number]. BABITA will file these docs and confirmation page in pt's hospital file. No other needs for SW team to address at this time.
[2019-12-11 15:07] LABS: MITOCHONDRIAL ANTIBODY <20.0 Units (0.0-20.0); SMOOTH MUSCLE ANTIBODY 7 Units (0-19)
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
== END 2019-12-10 11:00 | DRG 884 ==
LOC: SBH 10:00
PROVIDERS: Hospitalist; Internal Medicine; Nurse Practitioner; Nurse Practitioner Family; Psychiatry & Neurology Psychiatry; Specialist; ADMIT Psychiatry & Neurology Psychiatry; ATTEND Psychiatry & Neurology Psychiatry
DX: F01.51 Vascular dementia, unspecified severity, with behavioral disturbance (principal); F10.27 Alcohol dependence with alcohol-induced persisting dementia; R17 Unspecified jaundice; E44.1 Mild protein-calorie malnutrition; Y90.9 Presence of alcohol in blood, level not specified; F29 Unspecified psychosis not due to a substance or known physiological condition; T43.3X5A Adverse effect of phenothiazine antipsychotics and neuroleptics, initial encounter; L71.9 Rosacea, unspecified; I10 Essential (primary) hypertension; K59.00 Constipation, unspecified; M19.90 Unspecified osteoarthritis, unspecified site; F17.210 Nicotine dependence, cigarettes, uncomplicated; Z66 Do not resuscitate; Z20.828 Contact with and (suspected) exposure to other viral communicable diseases; Y92.89 Other specified places as the place of occurrence of the external cause; Z68.22 Body mass index [BMI] 22.0-22.9, adult; Z98.1 Arthrodesis status
CPT/HCPCS: 10880